=== PATIENT | female | born 1950 | race Caucasian/White ===

== ENCOUNTER → 2017-12-28 13:29 | Outpatient (CLI) | payer MEDICARE, SELFPAY ==
--- NOTE | 2017-12-28 13:35 | XR_ITS ---
XR knee RT 3V HISTORY: ITS.REASON: RT KNEE PAIN ORDERING PHYSICIAN: Anju Gunn PATIENT AGE: 67 years COMPARISON: FINDINGS: No fracture or dislocation. No lytic or blastic change. Normal mineralization. There are mild osteoarthritic changes of the medial compartment and patellofemoral joint. IMPRESSION: Mild osteoarthritis otherwise negative
== END ==
PROVIDERS: PCP Internal Medicine Adolescent Medicine; Visit Provider Nurse Practitioner Family
DX: M25.561 Pain in right knee (principal)
CPT/HCPCS: 73562

== ENCOUNTER → 2018-03-25 14:45 | Outpatient (CLI) | payer MEDICARE, SELFPAY ==
--- NOTE | 2018-03-25 14:51 | XR_ITS ---
XR wrist LT min 3V Ordering Physician: Anju Gunn Patient Age: 68 years: Female HISTORY: ITS.REASON: FALL TODAY, LT WRIST PAIN TECHNIQUE: 3 views right wrist COMPARISON :None FINDINGS Fracture distal radius. With this there is buckling of the cortex seen at the base of the radial styloid on the frontal projection of this mildly impacted fracture. Very subtle dorsal tilt of the distal fracture fragment evident on the lateral view. Soft tissue swelling about the wrist most evident dorsal. On the oblique view question due to the extension towards the ulnar margin articular surface but this is equivocal.. Demineralization noted. Carpals appear intact Advanced arthritic changes at the first carpal-metacarpal joint, with marked joint space narrowing sclerosis and hypertrophic features about this joint The ulna and relatively long ulnar styloid remain intact IMPRESSION 1. Fracture distal radius. Mildly impacted Fracture which basically transverses the. Scant Subtle dorsal tilt. Possible longitudinal extension to the medial articular surface of distal radius, on the oblique view. 2. Prominent degenerative arthritic changes at first carpal-metacarpal joint
== END ==
PROVIDERS: PCP Nurse Practitioner Family; Visit Provider Nurse Practitioner Family
DX: M25.532 Pain in left wrist (principal)
CPT/HCPCS: 73110

== ENCOUNTER → 2018-03-26 10:22 | Outpatient (CLI) | payer MEDICARE, SELFPAY ==
--- NOTE | 2018-03-26 10:23 | XR_ITS ---
XR wrist LT min 3V HISTORY: Recent fracture ITS.REASON: left wrist fx/ cast applied ORDERING PHYSICIAN: Kevin Barrios MD PATIENT AGE: 68 years COMPARISON: Left wrist 03/25/2018 FINDINGS: The fracture line of the distal radius is faintly seen due to the density of the cast. The distal ulna and ulnar styloid appear normal. The carpal bones are intact again noted is prominent arthritic change at the first carpal metacarpal joint IMPRESSION: Satisfactory recasting distal radial fracture
== END ==
PROVIDERS: PCP Internal Medicine Adolescent Medicine; Visit Provider Orthopaedic Surgery
DX: S62.102A Fracture of unspecified carpal bone, left wrist, initial encounter for closed fracture (principal)
CPT/HCPCS: 73110

== ENCOUNTER → 2018-04-01 12:13 | Outpatient (CLI) | payer MEDICARE, SELFPAY ==
--- NOTE | 2018-04-01 12:17 | XR_ITS ---
XR wrist LT min 3V Ordering Physician: Kevin Barrios MD Patient Age: 68 years: Female HISTORY: ITS.REASON: left wrist fx/ xrays in cast TECHNIQUE: 3 view left wrist in cast COMPARISON : 03/26/2018 FINDINGS Fiberglas cast remains in place. Healing fracture distal radius again identified and stable position of fracture elements. Scant dorsal tilt of the distal radial fracture fragment. Stable. The anatomical position on the frontal projection The arthritic changes first carpal metacarpal joint noted.. IMPRESSION: Stable healing fracture of the distal radius
== END ==
PROVIDERS: PCP Internal Medicine Adolescent Medicine; Visit Provider Orthopaedic Surgery
DX: S52.502A Unspecified fracture of the lower end of left radius, initial encounter for closed fracture (principal)
CPT/HCPCS: 73110

== ENCOUNTER → 2018-04-29 14:26 | Outpatient (CLI) | payer MEDICARE, SELFPAY ==
--- NOTE | 2018-04-29 14:29 | XR_ITS ---
XR wrist LT min 3V HISTORY follow-up fracture ITS.REASON: OUT OF CAST ORDERING PHYSICIAN: Kevin Barrios MD PATIENT AGE: 68 years Comparison: 04/01/2018 FINDINGS: The cast has been removed. Healing fracture of the distal radius once again noted with minimal dorsal angulation of the distal fracture fragment. Fracture line is barely perceptible. There are osteoarthritic changes of the first metacarpal carpal joint. IMPRESSION: Good alignment status post interval cast removal with healing fracture of the distal radius
== END ==
PROVIDERS: PCP Nurse Practitioner Family; Visit Provider Orthopaedic Surgery
DX: S52.502A Unspecified fracture of the lower end of left radius, initial encounter for closed fracture (principal)
CPT/HCPCS: 73110

== ENCOUNTER 2018-04-29 15:49 | Outpatient (RCR) | payer MEDICARE, SELFPAY | END 2018-04-30 10:18 | disposition home or self-care (01) | LOC: OT 15:49 | PROVIDERS: Family Provider Nurse Practitioner Family; PCP Nurse Practitioner Family; Visit Provider Orthopaedic Surgery | DX: S52.502A Unspecified fracture of the lower end of left radius, initial encounter for closed fracture (principal) | CPT/HCPCS: 97760 ==

== ENCOUNTER → 2018-05-24 13:57 | Outpatient (CLI) | payer MEDICARE, SELFPAY ==
--- NOTE | 2018-05-24 14:00 | XR_ITS ---
XR wrist LT min 3V HISTORY follow-up fracture ITS.REASON: left wrist pain ORDERING PHYSICIAN: Kevin Barrios MD PATIENT AGE: 68 years Comparison: 04/29/2018 FINDINGS: Healing distal radial fracture once again noted with mild dorsal angulation of the distal fracture fragment and no significant displacement. No obvious residual fracture line evident. There are degenerative changes at the first metacarpal carpal joint with some bony debris at that area. IMPRESSION: Nondisplaced healing distal radial fracture as before
== END ==
PROVIDERS: PCP Nurse Practitioner Family; Visit Provider Orthopaedic Surgery
DX: S52.502A Unspecified fracture of the lower end of left radius, initial encounter for closed fracture (principal)
CPT/HCPCS: 73110

== ENCOUNTER 2018-06-09 09:00 | Outpatient (RCR) | payer MEDICARE, SELFPAY ==
--- NOTE | 2018-05-04 17:11 | HMH.OTOPEV ---
OT Inpatient Evaluation Rehab OT Outpatient Eval Start: 05/04/18 17:01 Freq: Status: Active Protocol: Document 05/04/18 17:01 [email or web address] (Rec: 05/04/18 17:11 [id number] Electronically Signed By Falguni Nicole OT 05/04/18 17:01 Outpatient Therapy Subjective History Subjective History Pt is a 68 year old female who reports to therapy for initial evaluation to left thumb and wrist. Pt fell in her kitchen ~5 weeks ago resulting in a Left closed colles fx. Pt was recently taken out of her cast and fitted for a pre-hung wrist brace. Pt demonstrates wth decreased AROM and strength at left thumb and wrist. Pt also has decreased exhaust emissions automotive technician strength and decreased fine motor skills. Pt will continue to engage in therapy in order to address these deficits. 9 Hole peg test was completed Results: Left hand: 43 seconds Right hand: 22 seconds Goal: Left hand: 30 seconds Chief Complaint Pain Stiff Swelling Decreased Plumber Cub Strength Decreased Coordination Symptom Type Ache Throb Sharp Dull Stabbing Burning Numbness Tingling Shooting Symptoms Relieved By Nothing Symptoms Aggravated By Physical Activity Twisting Lifting Prior Functional Limitations None Current Functional Limitations Reaching Lifting Housework Dressing Desk Work/Reading Driving Sleeping Recreation Activity Symptom Description Constant but Variable
== END 2018-06-09 09:01 | disposition home or self-care (01) ==
LOC: OT 09:00
PROVIDERS: Family Provider Nurse Practitioner Family; PCP Nurse Practitioner Family; Visit Provider Orthopaedic Surgery
DX: S52.502A Unspecified fracture of the lower end of left radius, initial encounter for closed fracture (principal)
CPT/HCPCS: 97035; 97110; 97140; 97166

== ENCOUNTER → 2018-06-11 10:02 | Outpatient (CLI) | payer MEDICARE, SELFPAY ==
--- NOTE | 2018-06-11 10:04 | XR_ITS ---
XR wrist LT min 3V HISTORY follow-up fracture, pain ITS.REASON: left wrist pain ORDERING PHYSICIAN: Kevin Barrios MD PATIENT AGE: 68 years Comparison: 05/24/2018 FINDINGS: No change in the healing distal radial fracture once again noted with mild dorsal angulation of the distal fracture fragment and no significant displacement. No obvious residual fracture line evident. There are degenerative changes at the first metacarpal carpal joint with some bony debris at that area. IMPRESSION: Nondisplaced healing distal radial fracture overall not significantly changed with associated osteoarthritic change
== END ==
PROVIDERS: PCP Nurse Practitioner Family; Visit Provider Orthopaedic Surgery
DX: M18.12 Unilateral primary osteoarthritis of first carpometacarpal joint, left hand (principal); S52.502A Unspecified fracture of the lower end of left radius, initial encounter for closed fracture
CPT/HCPCS: 73110

== ENCOUNTER → 2018-12-29 16:14 | Outpatient (CLI) | payer MEDICARE, SELFPAY ==
--- NOTE | 2018-12-29 16:20 | XR_ITS ---
XR finger RT min 2V CLINICAL INDICATION: ITS.REASON: RT THUMB PAIN DUE TO TRAUMA ORDERING PHYSICIAN: Anju Gunn APRN PATIENT AGE: 68 years Comparison: None FINDINGS: There is a nondisplaced comminuted fracture involving the mid shaft of the proximal phalanx of the thumb with minimal dorsal angulation of the distal fracture fragment. There is an area of lucency involving the mid shaft of the proximal phalanx. This area measures approximately 6 mm. A lytic lesion is considered. Follow-up is suggested. There are mild degenerative changes of the first metacarpal carpal joint. IMPRESSION: Comminuted nondisplaced fracture midshaft proximal phalanx of the thumb with possible lytic lesion of the proximal phalanx. Follow-up radiograph suggested
== END ==
PROVIDERS: PCP Internal Medicine Adolescent Medicine; Visit Provider Nurse Practitioner Family
DX: M79.644 Pain in right finger(s) (principal); G89.11 Acute pain due to trauma
CPT/HCPCS: 73140

== ENCOUNTER → 2019-01-18 10:47 | Outpatient (CLI) | payer MEDICARE, SELFPAY ==
--- NOTE | 2019-01-18 10:59 | CT_ITS ---
CT abdomen pelvis wo con CLINICAL INDICATION: Left flank pain with hematuria ITS.REASON: ACUTE CYSTITIS W/HEMATURIA,URINARY FREQUENCY ORDERING PHYSICIAN: Anju Gunn APRN PATIENT AGE: 68 years COMPARISON: 12/12/2009 TECHNIQUE: Axial images obtained with sagittal and coronal reformats. All CT scans at the facility use one or more dose reduction, viz: automated exposure control, ma/kV adjustment per patient size (including targeted exams where dose is matched to indication, i.e. head), or iterative reconstruction technique. PROCEDURE: Oral Contrast: None IV Contrast: None . FINDINGS: Postcholecystectomy change. The liver, spleen, adrenal glands, and pancreas have an unremarkable unenhanced appearance. There is some dense calcification noted along the lesser curvature of the stomach. Small duodenal diverticulum is present. No renal or ureteral calculi. No hydronephrosis. No evidence of appendicitis. An oval hyperdensity is present in the ascending colon and may be due to a nondigested medicine. There are scattered colonic diverticula but no evidence of diverticulitis. Postsurgical changes in the small bowel in the left mid abdominal region. No intestinal obstruction or free air. No acute bony findings. Small left inguinal hernia containing fat IMPRESSION: No acute abdominal or pelvic findings. No renal or ureteral calculi. No hydronephrosis Incidental nonacute findings as described above.
== END ==
PROVIDERS: PCP Nurse Practitioner Family; Visit Provider Nurse Practitioner Family
DX: N30.01 Acute cystitis with hematuria (principal); R35.0 Frequency of micturition
CPT/HCPCS: 74176

== ENCOUNTER → 2019-04-18 15:10 | Outpatient (CLI) | payer MEDICARE, SELFPAY ==
--- NOTE | 2019-04-18 15:14 | MM_ITS ---
MM Dig mamm BI DX w/CAD INDICATION: Left breast pain ORDERING PHYSICIAN: Anju Gunn APRN PATIENT AGE: 69 years COMPARISON: 07/23/2017 TECHNIQUE: Standard images with nipple profile images and cc views FINDINGS: Mostly fatty replaced fibroglandular tissue. No discrete mass or malignant appearing microcalcification. Artifact is present from left-sided pacemaker placement. IMPRESSION: Negative, no evidence of malignancy with no significant change BI-RADS Category: 1 Negative RECOMMENDED FOLLOW-UP: 1YR - 1 YEAR FOLLOW-UP (A letter has been sent to the patient regarding results of the study.)
== END ==
PROVIDERS: PCP Nurse Practitioner Family; Visit Provider Nurse Practitioner Family
DX: N64.4 Mastodynia (principal)
CPT/HCPCS: 77066

== ENCOUNTER → 2019-06-07 08:27 | Outpatient (POV) | payer MEDICARE, SELFPAY | PROVIDERS: Visit Provider Dermatology | DX: Z00.00 Encounter for general adult medical examination without abnormal findings (principal) ==

== ENCOUNTER → 2019-06-21 08:38 | Outpatient (POV) | payer MEDICARE, SELFPAY | PROVIDERS: Visit Provider Dermatology | DX: Z00.00 Encounter for general adult medical examination without abnormal findings (principal) ==

== ENCOUNTER → 2019-06-28 08:25 | Outpatient (POV) | payer MEDICARE, SELFPAY | PROVIDERS: Visit Provider Dermatology | DX: Z00.00 Encounter for general adult medical examination without abnormal findings (principal) ==

== ENCOUNTER → 2020-06-04 14:26 | Outpatient (CLI) | payer MEDICARE, SELFPAY ==
--- NOTE | 2020-06-04 14:31 | MM_ITS ---
PROCEDURE: MM DIG SCREENING MAMM BI W/CAD Digital Breast Tomosynthesis Included CLINICAL INDICATION: SCREENING There is a history of breast cancer patient's paternal aunt. COMPARISON: MG DMSB DIG MAMM-SCREEN [facility] from 06/08/2015 MG DMSB DIG MAMM-SCREEN [facility] from 06/09/2016 MG DMSB DIG MAMM-SCREEN [facility] W/CAD from 07/23/2017 TECHNIQUE: Standard CC and MLO images and 3D Tomosynthesis was obtained. R2 CAD reviewed. FINDINGS: The breasts are composed primarily of fat with minimal scattered fibroglandular densities throughout each breast. There is a cardiac device projecting over the left axilla. There is no suspicious lesion in either breast and no suspicious microcalcifications. IMPRESSION: Fatty type breast parenchyma with no suspicious lesions seen BI-RAD Category: 2 Benign Finding(s) FOLLOW-UP: 1YR 1 Year Follow-up (A letter has been sent to the patient regarding results of the study.) Dictated by: Dr. Lucho Arriola MD 06/10/2020 09:47 Dr. Lucho Arriola MD in [place] 06/10/2020 09:47
--- NOTE | 2020-06-04 14:31 | XR_ITS ---
PROCEDURE: XR DEXA AXIAL SKELETON CLINICAL HISTORY: OSTEOPENIA COMPARISON: CR BONE3 BONE DENSITOMETRY(HIP:LT SPINE from 11/18/2016 FINDINGS: The right hip BMD is 0.616 with a T-score of -2.1. The left hip BMD is 0.615 with a T-score of -2.1. The lumbar spine BMD is 0.775 with a T-score of -2.5. Previously the lowest density was in the lumbar spine with a T-score of -2.2 IMPRESSION: This patient is considered osteoporotic according to the World Health Organization criteria. Fracture risk is high. Treatment is advised. Based on these results a follow-up exam is recommended in 1 year. Dictated by: Gerson Tidwell MD 06/05/2020 08:19 Gerson Tidwell MD in [facility] 06/05/2020 08:19
== END ==
PROVIDERS: PCP Nurse Practitioner Family; Visit Provider Nurse Practitioner Family
DX: Z12.31 Encounter for screening mammogram for malignant neoplasm of breast (principal); Z13.820 Encounter for screening for osteoporosis; M85.89 Other specified disorders of bone density and structure, multiple sites
CPT/HCPCS: 77063; 77067; 77080

== ENCOUNTER 2020-07-04 10:55 | Outpatient (CLI) | payer MEDICARE, SELFPAY ==
[2020-07-04 11:25] VITALS: BP 128/65; PULSE 90; RESP 20; TEMP 36.5; O2SAT 97
== END 2020-07-04 11:25 | disposition home or self-care (01) ==
LOC: INF 11:00
PROVIDERS: Visit Provider Nurse Practitioner Family
DX: M81.0 Age-related osteoporosis without current pathological fracture (principal)
CPT/HCPCS: 96372; J0897

== ENCOUNTER → 2020-08-17 14:02 | Outpatient (CLI) | payer MEDICARE, SELFPAY ==
--- NOTE | 2020-08-17 14:06 | CT_ITS ---
PROCEDURE: CT LUMBAR SPINE WO CON CLINICAL HISTORY: LOW BACK PAIN AT MULTIPLE SITES Mid back pain, low back pain radiating into the hip COMPARISON: CT ABDPELWO CT abdomen pelvis wo con from 01/18/2019 TECHNIQUE: Axial images obtained with sagittal and coronal reformats. All CT scans at the facility use one or more dose reduction, viz: automated exposure control, ma/kV adjustment per patient size (including targeted exams where dose is matched to indication, i.e. head), or iterative reconstruction technique. FINDINGS: The there is normal alignment. No acute fracture or dislocation is evident. L1-L2: There is mild degenerative disc disease with minimal retrolisthesis of L1 of 3 mm. L2-L3: Mild degenerative disc disease with minimal bulging disc. L3-L4: Minimal bulging disc slightly eccentric toward the left. L4-5: Mild concentric bulging disc with mild facet and ligamentum hypertrophy with minimal central disc protrusion. L5-S1: Mild facet hypertrophic change. No bony canal stenosis. IMPRESSION: Mild multilevel lumbar spondylosis. Please see above for detailed description at each level. Dictated by: Gerson Tidwell MD 08/18/2020 06:55 Gerson Tidwell MD in [place] 08/18/2020 06:55
== END ==
PROVIDERS: PCP Nurse Practitioner Family; Visit Provider Nurse Practitioner Family
DX: M54.5 Low back pain (principal)
CPT/HCPCS: 72131

== ENCOUNTER → 2020-09-06 10:48 | Outpatient (POV) | payer MEDICARE, SELFPAY ==
[2020-09-06 11:28] VITALS: BP 136/85; PULSE 74; RESP 18; TEMP 36.6; O2SAT 98; BMI 40.6
--- NOTE | 2020-09-06 13:51 | HMH.PMCON ---
Assessment and Plan (1) Degenerative joint disease (DJD) of lumbar spine Status: Chronic Category: Medical Code(s): M47.816 - Spondylosis without myelopathy or radiculopathy, lumbar region (2) Lumbar radiculopathy Status: Chronic Category: Medical Code(s): M54.16 - Radiculopathy, lumbar region - Assessment and plan all Dx Assessment and Plan for all problems:: Patient does have a Pacemaker and is unable to undergo an MRI. She does have a CT scan of her lumbar spine. She is exhibiting neurogenic claudication type symptoms. We will schedule her for a lumbar epidural steroid injection at L4-L5 with an epidurogram. She is on Xarelto therapy by Dr. Cintron. We will seek approval for her to hold her Xarelto therapy prior to the injection. Risks and benefits of the procedure were explained to the patient and she would like to proceed with the injection. We will see her back after injection to reassess her symptoms and discuss a further plan of care. She has been instructed to contact clinic if she has any concerns before next appointment. The patient and I specifically discussed risk factors for COVID19. These risks include, but are not limited to age greater than 60, heart or lung disease, diabetes, immunosuppression, and travel. We also discussed NSAIDs may worsen COVID19 infection or symptoms. Patient should not use NSAIDs to treat COVID19 signs or symptoms. Patient was also informed that any type of corticosteroid of any form (oral or injection) will decrease the patient's immune system response and may increase the likelihood of COVID19 infection and symptoms. And HPI - Data of Consult Patient: new to practice Consult date: 09/06/20 Requesting Physician: Akua Matias APRN Primary Care Provider: Anju Gunn APRN - Consult Narrative Reason for consult: Low back pain History of present illness: Ms. Cote is a 70 year old female who presents today for consultation for chronic low back pain. Patient says that she has had ongoing low back pain for greater than 30 years. 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 She attributes much of her back pain due to heavy lifting of patients throughout her career. She says that her pain is constant and is now causing her to lose her balance and fall. As a result, the patient has had a left wrist fracture and a right thumb fracture from frequent falls. She says that she is unable to stand long enough to do dishes or to cook a meal at this point due to the pain. Bending forward or laying in the position gives her some relief. She has tried physical therapy along with continued home stretching program with little to no relief. She says that she did have reported herniated disks at L4-L5 and L5-S1 in the past and traction did give her some relief. She did not undergo any type of surgical intervention at that time. She is not interested in any type of major surgical intervention or a neurosurgical consult at this time. She says that she does have episodes where her legs have become numb and she has lost her balance. Approximately a year ago she lost sensation in bilateral lower extremities and fell to the floor. She says that she developed sensation back to her legs in about 24 hours and was able to walk again. She says at this time, she is not able to stand, sit, or lie for very long due to pain. She also reports to have severe leg atrophy in her left lower extremity. 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 She is currently on gabapentin. She says that her pain is in the low back with radiation into bilateral legs with numbness and tingling. She does have history of osteoporosis as well. She is currently on Xarelto therapy that is prescribed by Dr. Cintron. She is unable to take anti-inflammatories due to her Xarelto therapy. She does continue wit
--- NOTE | 2020-09-14 15:37 | PC.NURSE ---
Spoke with patient to stop blood thinner 4 days before injection.
== END ==
PROVIDERS: PCP Nurse Practitioner Family; Visit Provider Clinical Nurse Specialist Family Health
DX: M47.896 Other spondylosis, lumbar region (principal); M54.16 Radiculopathy, lumbar region
CPT/HCPCS: 99202

== ENCOUNTER 2020-09-21 09:10 | Day surgery (SDC) | payer MEDICARE, SELFPAY ==
[2020-09-21 09:51] VITALS: BP 137/82; PULSE 95; RESP 20; TEMP 36.3; O2SAT 92; BMI 41.8
[2020-09-21 10:32] VITALS: BP 111/84; PULSE 93; RESP 18; O2SAT 98
[2020-09-21 10:33] VITALS: BP 115/89; PULSE 90; RESP 18; O2SAT 98
--- NOTE | 2020-09-21 10:38 | HMH.PMPROC ---
- Procedure Date: 09/21/20 Time: 10:38 Anesthesiologist:: Imtiaz Duran MD Complications:: None Pre-procedure Diagnosis:: Degenerative disc disease of lumbar spine with lumbar radiculopathy symptoms Post-procedure Diagnosis:: Same Indications for Procedure:: This patient is a pleasant 70-year-old white female who we are treating for low back pain with lumbar radiculopathy symptoms and spinal stenosis with neurogenic claudication symptoms. She has increasing pain on the right side. We will do a lumbar pleural steroid injection with epidurogram today to see if this will help with some of her pain symptoms. Procedure Details:: Lumbar epidural steroid injection under fluoroscopy Informed consent was obtained and the risk and benefits of the procedure was explained to the patient. The patient was taken to the procedure room. The patient was placed prone on the procedure table. The patient was prepped and draped in sterile fashion. C-arm fluoroscopy was used to view the lumbar spine. Skin and subcutaneous tissues were anesthetized using lidocaine. I placed an 18-gauge epidural needle and advanced into the L4-L5 interspace using fluoroscopic guidance and [id number] to air. After confirmation of needle placement in the epidural space with dye I injected 2 mL of lidocaine 1.5% with Depo-Medrol 80 mg. Patient tolerated the procedure well with no complications. Plan and Disposition:: Based on epidurogram she does have significant stenosis at L3-L4 and L4-L5. We will plan on minimally invasive lumbar decompression of L3-L4 and L4-L5 bilaterally. Worst pain is on the right side so we will concentrate on this side. She cannot stand for longer than 5 minutes. She cannot walk greater than 100 feet. We will plan on minimally invasive lumbar decompression at both of these levels.
[2020-09-21 10:46] VITALS: BP 140/68; PULSE 87; RESP 20; O2SAT 93
== END 2020-09-21 10:47 | disposition home or self-care (01) ==
LOC: SC.PAINP 09:11
PROVIDERS: PCP Nurse Practitioner Family; Visit Provider Anesthesiology
DX: M51.16 Intervertebral disc disorders with radiculopathy, lumbar region (principal); I10 Essential (primary) hypertension; E78.5 Hyperlipidemia, unspecified; E03.9 Hypothyroidism, unspecified; Z88.8 Allergy status to other drugs, medicaments and biological substances; Z88.1 Allergy status to other antibiotic agents; Z79.899 Other long term (current) drug therapy
CPT/HCPCS: 62323; J1040; Q9966

== ENCOUNTER → 2020-10-11 10:12 | Outpatient (POV) | payer MEDICARE, SELFPAY ==
[2020-10-11 10:27] VITALS: BP 133/78; PULSE 74; RESP 18; TEMP 36.8; O2SAT 98; BMI 43.5
--- NOTE | 2020-10-11 10:53 | P.CONS_ITS ---
[facility] Pain Management SOAP Note Subjective:: Is a very pleasant 70-year-old white female who we are treating for low back pain with lumbar radiculopathy and spinal stenosis with neurogenic claudication. Patient had a epidurogram which showed significant stenosis at L3-L4 L4-L5. Patient is a candidate for minimally invasive lumbar decompression at L3-L4 L4- L5 bilaterally. Patient's worst pain is on the right side so the concentration will be on that side. Patient cannot stand longer than 5 minutes. She cannot walk greater than 100 feet. Patient's tried and failed other conservative measures. She rates her pain today 7 out of 10. Patient is on anticoagulation therapy however she does have permission to come off prior to her procedure. ROS General: no recent weight change, no fever, no sleep disturbances Respiratory: no cough, no shortness of air, no recurring pulmonary infections Cardiovascular/Peripheral Vascular: No chest pain, No palpitations, no edema, no shortness of breath. Gastrointestinal: no new onset incontinence, normal bowel movements reported Genitourinary: no new onset incontinence Musculoskeletal: Back pain, leg pain Psychiatric: normal mood/ affect, Neurological: Weakness bilateral lower extremities when standing, [denies new onset balance issues] Objective:: Physical Exam General: Alert and oriented x3, no acute distress, pleasant and cooperative, on home O2 Lungs: Resps E/U, Symmetrical chest expansion, Eyes: PERRL Musculoskeletal: Flexion and extension of lumbar spine somewhat guarded secondary to pain, deep tendon reflexes normal, strength in upper and lower extremities [5/5], [abnormal gait noted] Neurological: speech clear, concession stand attendant equal, no gross sensory deficits Assessment:: Degenerative disc disease lumbar spine lumbar radiculopathy, spinal stenosis with neurogenic claudication Plan:: We will schedule the patient for minimally invasive lumbar decompression at L3- L4 L4 L5 with a focus on the right side. Patient has permission to come off of her anticoagulation therapy. Patient will follow up after this and we will reassess her symptoms at that time she has been instructed to call the office if she has any issues prior to her next appointment. Dr. Duran has reviewed this note and agrees with this plan of care. This note was dictated using voice recognition software and may contain errors or omissions [facility] History I have reviewed the patient's past medical history: Yes Medical History: Reports:: Arrhythmia, Atrial Fibrillation, Congestive Heart Failure, Chronic Obstructive Pulmonary Disease (COPD), Diabetes Mellitus Type 2, Gastroesophageal Reflux Disease(GERD), Home Oxygen, Hyperlipidemia, Hypertension, Internal Pacemaker, Valvular Heart Disease Denies:: Cancer, Diabetes Mellitus Type 1, MRSA, Seizures *Have you ever received a pneumonia vaccine?: Yes *Have you received a flu vaccine this season?: Yes Other Medical History: Reports: Anemia, Arthritis, Cataracts, Hypothyroidism, Thyroid Disease Laterality Cases: Right: Arthroscopy Shoulder Other Surgeries: Yes: Bariatric Surgery (gastric bypass), Cholecystectomy, Hernia Repair (multiple), Pacemaker Amputation: No - *Social History Smoking Status: Never smoker Alcohol Intake: never Alcohol Intake Frequency:: holidays/special occasions only *Occupational Status:: other Housing: house Household Members: spouse *Travel in the last 8 weeks: None Family Hx:: Unable to obtain
== END ==
PROVIDERS: PCP Nurse Practitioner Family; Visit Provider Clinical Nurse Specialist Family Health
DX: M51.16 Intervertebral disc disorders with radiculopathy, lumbar region (principal); M48.062 Spinal stenosis, lumbar region with neurogenic claudication
CPT/HCPCS: 99212; G0463

== ENCOUNTER → 2020-10-15 14:30 | Outpatient (CLI) | payer MEDICARE, SELFPAY ==
[2020-10-15 15:13] LABS: Basophils # 0.1 K/mm3 (0-0.2); Basophils % 0.5 % (0.1-2.0); Eosinophils # 0.2 K/mm3 (0.0-0.4); Eosinophils % 1.9 % (0.1-12.0); Hematocrit 41.5 % (37.0-47.0); Hemoglobin 13.1 g/dL (12.2-16.2); Lymphocytes # 3.3 K/mm3 (0.7-4.5); Lymphocytes % 30.7 % (10-50); Mean Corpuscular HGB Conc 31.4 g/dL (31.8-35.4); Mean Corpuscular Hemoglobin 29.7 pg (27.0-31.2); Mean Corpuscular Volume 94.5 fl (81-99); Monocytes # 0.6 K/mm3 (0.1-1.0); Monocytes % 5.9 % (1.7-9.3); Neutrophils # 6.6 K/mm3 (1.8-7.8); Platelet Count 269 K/mm3 (142-424); Red Cell Distribution Width 14.1 % (11.5-17.5); White Blood Count 10.9 K/mm3 (4.8-10.8)
[2020-10-15 17:51] LABS: Anion Gap 11.3 mEq/L (5-15); Blood Urea Nitrogen 18 mg/dl (7-17); Calcium 9.2 mg/dl (8.4-10.2); Carbon Dioxide 31 mmol/L (22.0-30.0); Chloride 104 mmol/L (98-107); Estimated Glomerular Filt Rate 71 ml/min (>60); GFR (African American) 86 ML/MIN (>60); Glucose 88 mg/dl (74-100); Potassium 4.3 mmoL/L (3.5-5.1); Sodium 142 mmol/L (136-145)
[2020-10-15 18:14] LABS: Coronavirus 19 IgG Antibody Positive (Negative); Coronavirus 19 IgM Antibody Negative (Negative)
== END ==
PROVIDERS: Anesthesiology; Visit Provider Psychiatry & Neurology Neurology
DX: Z01.812 Encounter for preprocedural laboratory examination (principal); Z20.822 Contact with and (suspected) exposure to COVID-19; Z86.16 Personal history of COVID-19; G60.9 Hereditary and idiopathic neuropathy, unspecified; M47.816 Spondylosis without myelopathy or radiculopathy, lumbar region; M54.16 Radiculopathy, lumbar region
CPT/HCPCS: 36415; 80048; 82525; 85025; 86328

== ENCOUNTER 2020-10-17 08:54 | Day surgery (SDC) | payer MEDICARE, SELFPAY ==
[2020-10-15 12:42] VITALS: BMI 43.0
[2020-10-17 09:31] VITALS: BP 133/78; PULSE 76; RESP 18; TEMP 36.2; O2SAT 98
[2020-10-17 09:46] LABS: POC Glucose,Bedside 105 (70-110)
--- NOTE | 2020-10-17 10:02 | HMH.ANESCL ---
[facility] Anesthesia Checklist - Structural Data Admitted From: Home Planned Operative Procedure/s: mild Consent for Planned Operative Procedure(s) Verified: Yes - Additional verifications Anesthesia Reactions: No Hx Blood Transfusions: No Blood Transfusion Reaction: No - Airway Assessment C-Spine Mobility Assessed: Yes TMJ Mobility Assessed: Yes Dentition: Good Dentition - Neurological Assessment Level of Consciousness: Awake, Alert, Appropriate - Anesthesia Plan Anesthesia Risk discussed: Yes Anesthesia Plan: Patient unable to respond/answer ASA Class: III Anesthesia Type: MAC [facility] History I have reviewed the patient's past medical history: Yes Medical History: Reports:: Arrhythmia, Atrial Fibrillation, Congestive Heart Failure, Chronic Obstructive Pulmonary Disease (COPD), Diabetes Mellitus Type 2, Gastroesophageal Reflux Disease(GERD), Home Oxygen, Hyperlipidemia, Hypertension, Internal Pacemaker, MRSA, Valvular Heart Disease Denies:: Cancer, Diabetes Mellitus Type 1, Seizures *Have you ever received a pneumonia vaccine?: Yes *Have you received a flu vaccine this season?: Yes Other Medical History: Reports: Anemia, Arthritis, Cataracts, Hypothyroidism, Thyroid Disease. Denies: Blood Transfusion Reaction Anesthesia experience/problems:: none Laterality Cases: Right: Arthroscopy Shoulder Other Surgeries: Yes: Bariatric Surgery (gastric bypass), Cholecystectomy, Hernia Repair (multiple), Pacemaker Amputation: No - *Social History Last grade of school completed: Advanced degree Smoking Status: Former smoker Alcohol Intake: never Alcohol Intake Frequency:: holidays/special occasions only Substance Use Type: denies use *Occupational Status:: retired Housing: house Household Members: spouse *Travel in the last 8 weeks: None Family Hx:: Unable to obtain
[2020-10-17 12:25] VITALS: BP 99/54; PULSE 80; RESP 18; TEMP 36.7; O2SAT 96
--- NOTE | 2020-10-17 12:25 | PC.NURSE ---
LUNG SOUND OCCASIONAL EXPIRATORY WHEEZE RIGHT UPPER LOBE. PT REPORTS HAVING COPD AND HAS OCCASIONAL WHEEZE.
--- NOTE | 2020-10-17 12:25 | PC.NURSE ---
LUNG SOUND - PT HAS OCCASIONAL EXPIRATORY WHEEZE IN RIGHT UPPER LOBE. PT REPORTS SHE HAS COPD AND HAS OCCASIONAL WHEEZE.
--- NOTE | 2020-10-17 12:28 | HMH.OPNOTE ---
Date of procedure: 10/17/20 Pre-op Diagnosis:: Degenerative disc disease of lumbar spine with lumbar radiculopathy symptoms with lumbar spinal stenosis and neurogenic claudication symptoms Post-op Diagnosis:: Same Procedure performed:: Minimally invasive lumbar decompression bilateral L3-L4 and L4-L5 under fluoroscopy Surgeon:: Imtiaz Duran MD SEO ANALYST:: Beto Chinchilla Anesthesia: MAC Estimated blood loss (mL): 5 Clinical Note:: This patient is a pleasant 70-year-old white female who we are treating for low back pain with lumbar radiculopathy symptoms and spinal stenosis with neurogenic claudication symptoms. She has failed all previous conservative treatments including injections, oral medications, physical therapy and she is not a surgical candidate. She does have significant spinal stenosis based on previous epidurogram and MRI. She has significant stenosis at bilateral L3-L4 and L4-L5. Her main symptoms are on the right side. We will do bilateral minimally invasive lumbar decompression of L3-4 and L4-5 today. Operative findings:: None Operative note:: Informed consent was obtained and the risk and benefits of the procedure was explained to the patient. The patient was taken to the operating room and placed prone on the procedure table. The patient was prepped and draped in sterile fashion. C-arm fluoroscopy was used to view the lumbar spine. The skin and subcutaneous tissues were anesthetized using lidocaine. A epidural needle was inserted and advanced into the L3-L4 interspace. After confirmation of needle placement in the epidural space, dye was injected in a contralateral oblique view. There was an epidurogram seen at L3-L4 and L4-L5. Significant stenosis was seen at L3-L4 and L4-L5. The skin and subcutaneous tissues again were anesthetized using lidocaine. An incision was made and a access trocar was inserted and advanced to contact at the superior aspect of the L4 lamina on the left side. And a contralateral oblique view the side was viewed. Using a bone rongeur and tissue sculptor we debulked bone from the L3-L4 and L4-L5 interspace on the left side. We then used the tissue sculptor to debulk ligament at the L3-L4 and L4-L5 interspace on the left side. We then moved over to the right side and debulked bone and ligament from L3-L4 and L4-L5 on the right side. There is opening of the stenosis at L3-L4 and L4-L5 bilaterally. The access trocar was removed. A total of 3 mL's of dye was used. There is good spread of dye above and below this level as well. We injected 80 mg Depo-Medrol through the epidural needle. The epidural needle was removed and dressings were placed. This encounter for exam is for normal comparison and control in a clinical research program Patient was taken to recovery in stable condition. Patient was discharged home neurologically intact and with good relief of pain symptoms. Plan and disposition: We will follow-up with this patient in 2 weeks. Will reevaluate symptoms at that time. Condition: stable Disposition: PACU Complications:: None
[2020-10-17 12:40] VITALS: BP 106/61; PULSE 69; RESP 18; O2SAT 99
[2020-10-17 12:55] VITALS: BP 97/59; PULSE 67; RESP 18; O2SAT 99
[2020-10-17 13:25] VITALS: BP 103/54; PULSE 69; RESP 18; O2SAT 99
--- NOTE | 2020-10-17 13:50 | SUR.PHASEII ---
DR MASCORRO AT BEDSIDE. NOTIFIED PT HAD OCCASIONAL WHEEZE IN RIGHT UPPER LOBE. PT REPORTS HAVING COPD. NO NEW ORDERS GIVEN. PT MAY BE DISCHARGED HOME.
[2020-10-17 13:55] VITALS: BP 111/68; PULSE 72; RESP 18; TEMP 36.7; O2SAT 97
== END 2020-10-17 13:55 | disposition home or self-care (01) ==
LOC: OR 08:56
PROVIDERS: PCP Nurse Practitioner Family; Visit Provider Anesthesiology
DX: M51.16 Intervertebral disc disorders with radiculopathy, lumbar region (principal); M48.062 Spinal stenosis, lumbar region with neurogenic claudication; Z00.6 Encounter for examination for normal comparison and control in clinical research program; E11.9 Type 2 diabetes mellitus without complications; J44.9 Chronic obstructive pulmonary disease, unspecified; I11.0 Hypertensive heart disease with heart failure; E78.5 Hyperlipidemia, unspecified; I48.91 Unspecified atrial fibrillation; I50.9 Heart failure, unspecified; K21.9 Gastro-esophageal reflux disease without esophagitis; Z86.14 Personal history of Methicillin resistant Staphylococcus aureus infection; Z99.81 Dependence on supplemental oxygen
CPT/HCPCS: 0275T; 82962; 96374; C1889; J1040; J3370

== ENCOUNTER → 2020-11-01 13:43 | Outpatient (POV) | payer MEDICARE, SELFPAY ==
[2020-11-01 14:07] VITALS: BP 122/78; PULSE 71; RESP 18; O2SAT 98; BMI 41.0
--- NOTE | 2020-11-01 17:07 | HMH.PAINSOAP ---
[facility] Pain Management SOAP Note Subjective:: Patient is a pleasant 70-year-old white female who presents today for follow-up after mild procedure L3-L4 L4-L5. She has been treated for chronic pain secondary to degenerative disc disease lumbar spine with lumbar radiculopathy symptoms as well as lumbar spinal stenosis with neurogenic claudication symptoms. Patient does rate her pain a 3 out of 10 today. She says she is doing well overall. She denies any issues today. She says that she feels she is much more functional and able to walk better since having the procedure. Patient says she does continue to have some low back pain, however, she says that she is realistic and understands that she will not get 100% pain relief with the procedure. Review of Systems General: No recent weight changes, no fever, no sleep disturbances Respiratory: No cough, no shortness of air, no recurring pulmonary infections Cardiovascular/peripheral vascular: No chest pain, no palpitations, no edema, no shortness of breath Gastrointestinal: No new onset incontinence, normal bowel movements reported Genitourinary: No new onset incontinence Musculoskeletal: Intermittent low back pain Psychiatric: Normal mood/affect Neurological: [Denies weakness in extremities], [denies balance issues] Objective:: Physical exam General: Alert and oriented x3, no acute distress, pleasant and cooperative, [on room air] Lungs: Respirations even and unlabored, symmetrical chest expansion Eyes: PERRL Musculoskeletal: Flexion and extension of lumbar spine somewhat guarded secondary to pain, deep tendon reflexes normal, strength in upper and lower extremities [5/5], [abnormal gait noted] Neurological: Speech clear, 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 We will plan to follow-up with her in 2 weeks to reevaluate her symptoms. She has been instructed to contact clinic if she has any concerns for next appointment. The patient and I specifically discussed risk factors for COVID19. These risks include, but are not limited to age greater than 60, heart or lung disease, diabetes, immunosuppression, and travel. We also discussed NSAIDs may worsen COVID19 infection or symptoms. Patient should not use NSAIDs to treat COVID19 signs or symptoms. Patient was also informed that any type of corticosteroid of any form (oral or injection) will decrease the patient's immune system response and may increase the likelihood of COVID19 infection and symptoms[address] Dr. Duran has reviewed this note and agrees with this plan of care. This note was dictated using voice recognition software and make contain errors or omissions. [facility] History I have reviewed the patient's past medical history: Yes Medical History: Reports:: Arrhythmia, Atrial Fibrillation, Congestive Heart Failure, Chronic Obstructive Pulmonary Disease (COPD), Diabetes Mellitus Type 2, Gastroesophageal Reflux Disease(GERD), Home Oxygen, Hyperlipidemia, Hypertension, Internal Pacemaker, MRSA, Valvular Heart Disease Denies:: Cancer, Diabetes Mellitus Type 1, Seizures *Have you ever received a pneumonia vaccine?: Yes *Have you received a flu vaccine this season?: Yes Other Medical History: Reports: Anemia, Arthritis, Cataracts, Hypothyroidism, Thyroid Disease. Denies: Blood Transfusion Reaction Laterality Cases: Right: Arthroscopy Shoulder Other Surgeries: Yes: Bariatric Surgery (gastric bypass), Cholecystectomy, Hernia Repair (multiple), Pacemaker Amputation: No - *Social History Smoking Status: Former smoker Alcohol Intake: never Alcohol Intake Frequency:: holidays/special occasions only Substance Use Type: denies use *Occupational Status:: other Housing: house Household Members: spouse *Travel in the last 8 weeks: None Family
== END ==
PROVIDERS: PCP Nurse Practitioner Family; Visit Provider Clinical Nurse Specialist Family Health
DX: M51.16 Intervertebral disc disorders with radiculopathy, lumbar region (principal); M48.062 Spinal stenosis, lumbar region with neurogenic claudication
CPT/HCPCS: 99212; G0463

== ENCOUNTER → 2020-11-15 14:25 | Outpatient (POV) | payer MEDICARE, SELFPAY ==
[2020-11-15 14:48] VITALS: BP 135/74; PULSE 74; RESP 18; O2SAT 98; BMI 32.4
--- NOTE | 2020-11-15 15:48 | HMH.PAINSOAP ---
[facility] Pain Management SOAP Note Subjective:: Patient is a pleasant 70-year-old white female who presents today for follow-up after minimally invasive lumbar decompression. Patient states that she is been doing well she rates her pain a 6 out of 10 however she states that she was very active yesterday and the weather is also playing a factor in regard to her pain overall she is very satisfied with her current postoperative status. 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 Patient has very realistic expectations. I discussed with her if she ever needs this in the future for injective therapy she is more than welcome to return. Patient is agreeable to this. ROS General: no recent weight change, no fever, no sleep disturbances Respiratory: no cough, no shortness of air, no recurring pulmonary infections Cardiovascular/Peripheral Vascular: No chest pain, No palpitations, no edema, no shortness of breath. Gastrointestinal: no new onset incontinence, normal bowel movements reported Genitourinary: no new onset incontinence Musculoskeletal: Back pain leg pain Psychiatric: normal mood/ affect Neurological: [denies new onset weakness in extremities], [denies new onset balance issues] Objective:: Physical Exam General: Alert and oriented x3, no acute distress, pleasant and cooperative, home O2 Lungs: Resps E/U, Symmetrical chest expansion, Eyes: PERRL Musculoskeletal: Flexion and extension of lumbar spine somewhat guarded secondary to pain, deep tendon reflexes normal, strength in upper and lower extremities [5/5], [abnormal gait noted] Neurological: speech clear, pet supplies salesperson equal, no gross sensory deficits Assessment:: Degenerative disc disease lumbar spine lumbar radiculopathy, back pain, spinal stenosis with neurogenic claudication Plan:: We will see the patient back on an as-needed basis she has been instructed to call the office if she has any issues prior to her next appointment. Dr. Duran has reviewed this note and agrees with this plan of care. This note was dictated using voice recognition software and may contain errors or omissions [facility] History I have reviewed the patient's past medical history: Yes Medical History: Reports:: Arrhythmia, Atrial Fibrillation, Congestive Heart Failure, Chronic Obstructive Pulmonary Disease (COPD), Diabetes Mellitus Type 2, Gastroesophageal Reflux Disease(GERD), Home Oxygen, Hyperlipidemia, Hypertension, Internal Pacemaker, MRSA, Valvular Heart Disease Denies:: Cancer, Diabetes Mellitus Type 1, Seizures *Have you ever received a pneumonia vaccine?: No *Have you received a flu vaccine this season?: No Other Medical History: Reports: Anemia, Arthritis, Cataracts, Hypothyroidism, Thyroid Disease. Denies: Blood Transfusion Reaction Laterality Cases: Right: Arthroscopy Shoulder Other Surgeries: Yes: Bariatric Surgery (gastric bypass), Cholecystectomy, Hernia Repair (multiple), Pacemaker Amputation: No - *Social History Smoking Status: Former smoker Alcohol Intake: never Alcohol Intake Frequency:: holidays/special occasions only Substance Use Type: denies use *Occupational Status:: other Housing: house Household Members: spouse *Travel in the last 8 weeks: None Family Hx:: Unable to obtain
== END ==
PROVIDERS: Visit Provider Clinical Nurse Specialist Family Health
DX: M51.16 Intervertebral disc disorders with radiculopathy, lumbar region (principal); M48.062 Spinal stenosis, lumbar region with neurogenic claudication
CPT/HCPCS: 99212; G0463

== ENCOUNTER 2021-01-02 11:00 | Outpatient (CLI) | payer MEDICARE, SELFPAY ==
[2021-01-02 11:40] VITALS: BP 137/78; PULSE 78; RESP 20; TEMP 35.8; O2SAT 99
== END 2021-01-02 11:55 | disposition home or self-care (01) ==
LOC: INF 11:08
PROVIDERS: Visit Provider Nurse Practitioner Family
DX: M81.0 Age-related osteoporosis without current pathological fracture (principal)
CPT/HCPCS: 96372; J0897

== ENCOUNTER → 2021-05-24 17:55 | Outpatient (CLI) | payer MEDICARE, SELFPAY | PROVIDERS: Visit Provider Nurse Practitioner Family | DX: R35.0 Frequency of micturition (principal) | CPT/HCPCS: 87086 ==

== ENCOUNTER → 2021-06-05 08:32 | Outpatient (CLI) | payer MEDICARE, SELFPAY ==
--- NOTE | 2021-06-05 | XR_ITS ---
PROCEDURE: XR DEXA AXIAL SKELETON CLINICAL HISTORY: POST MENOPAUSAL COMPARISON: CR BONE3 BONE DENSITOMETRY(HIP:LT SPINE from 11/18/2016 FINDINGS: The right hip BMD is 0.653 with a T-score of -1.8. The left hip BMD is 0.653 with a T-score of -1.8. The lumbar spine BMD is 0.82 with a T-score of -2.0. Previously the lowest density was in the lumbar spine with T-score of -2.2 IMPRESSION: This patient is considered osteopenic according to the World Health Organization criteria. Bone density is between 10 and 25 percent below young normal. Fracture risk is moderate. Treatment is advised. Based on these results a follow-up exam is recommended in 2 year. Dictated by: Gerson Tidwell MD 06/05/2021 13:30 Gerson Tidwell MD in [place] 06/05/2021 13:30
--- NOTE | 2021-06-05 08:35 | MM_ITS ---
PROCEDURE INFORMATION: Exam: MG Bilateral Screening 3D Mammography Exam date and time: 06/05/2021 8:35 AM Age: 71 years old Clinical indication: Encounter for screening mammogram for malignant neoplasm of breast TECHNIQUE: Imaging protocol: Bilateral screening tomosynthesis and 2D mammography including computer-aided detection (CAD) when performed. COMPARISON: 1. MG MM DIG SCREENING MAMM BI W/CAD 06/04/2020 2:46 PM 2. SD MM DIG MAMM BI DX W/CAD 04/18/2019 3:30 PM FINDINGS: MAMMOGRAPHY: Breast composition: The breasts are almost entirely fatty. Mass: None. Architectural distortion: None. Calcifications: No suspicious calcifications. Asymmetric density: None. Skin thickening: None. Axillary adenopathy: None. IMPRESSION: No mammographic evidence of malignancy. Annual screening is recommended unless otherwise clinically indicated. ASSESSMENT: BI-RADS Category 1: Negative
== END ==
PROVIDERS: PCP Nurse Practitioner Family; Visit Provider Nurse Practitioner Family
DX: Z12.31 Encounter for screening mammogram for malignant neoplasm of breast (principal); Z13.820 Encounter for screening for osteoporosis; Z78.0 Asymptomatic menopausal state
CPT/HCPCS: 77063; 77067; 77080

== ENCOUNTER 2021-08-06 10:31 | Outpatient (CLI) | payer MEDICARE, SELFPAY ==
[2021-08-06 10:50] VITALS: BP 142/96; PULSE 71; RESP 17; TEMP 36.6; O2SAT 96
== END 2021-08-06 10:51 | disposition home or self-care (01) ==
LOC: INF 10:32
PROVIDERS: PCP Nurse Practitioner Family; Visit Provider Nurse Practitioner Family
DX: M85.89 Other specified disorders of bone density and structure, multiple sites (principal)
CPT/HCPCS: 96372; J0897

== ENCOUNTER 2022-01-17 16:59 | Inpatient (IN) | payer MEDICARE, SELFPAY ==
[2022-01-17 17:16] VITALS: BMI 37.4
--- NOTE | 2022-01-17 17:25 | XR_ITS ---
PROCEDURE INFORMATION: Exam: XR Chest Exam date and time: 01/17/22 06:12 PM Age: 71 years old Clinical indication: Shortness of breath; Prior surgery; Additional info: Respiratory distress TECHNIQUE: Imaging protocol: XR of the chest. Views: 2 views. COMPARISON: CR RIBUR3 [id number] VIEWS 09/10/15 04:19 PM FINDINGS: Lungs: Unremarkable. No consolidation. Pleural spaces: Unremarkable. No pleural effusion. No pneumothorax. Heart/Mediastinum: Pacemaker in good position. No cardiomegaly. Bones/joints: Unremarkable. IMPRESSION: No acute findings.
[2022-01-17 17:41] VITALS: BP 147/80; RESP 20; TEMP 37.5; O2SAT 92
[2022-01-17 18:40] VITALS: PULSE 72; PULSE 73; O2SAT 95
--- NOTE | 2022-01-17 18:44 | HMH.HP ---
*Admission Date: 01/17/22 *Chief complaint: weakness, SOA *History of present illness: 71-year-old female with history of chronic hypoxemic respiratory who presented to our office today with worsening cough, shortness of breath, increased oxygen requirement. States she been feeling worse since Thursday. Started having productive cough. Having nighttime sweats, increased body aches. Started on antibiotics in the outpatient setting with no improvement yet, but is developed diarrhea from the antibiotics. In our office with her , who is more dyspneic on interview requiring increased oxygen requirement to maintain sats in the low 90s. Decision made to admit from the office. On initial labs and imaging, has mild elevation of white count, presumed respiratory infection, and fever. CXR with hyperexpansion but no appreciable focal consolidation. Marked perihilar congestion. Negative for Flu and Covid on initial swabs. [facility] History I have reviewed the patient's past medical history: Yes Medical History: Reports:: Arrhythmia, Atrial Fibrillation, Congestive Heart Failure, Chronic Obstructive Pulmonary Disease (COPD), Diabetes Mellitus Type 2, Gastroesophageal Reflux Disease(GERD), Home Oxygen, Hyperlipidemia, Hypertension, Internal Pacemaker, MRSA, Valvular Heart Disease Denies:: Cancer, Diabetes Mellitus Type 1, Seizures *Have you ever received a pneumonia vaccine?: No *Have you received a flu vaccine this season?: No Other Medical History: Reports: Anemia, Arthritis, Cataracts, Hypothyroidism, Thyroid Disease. Denies: Blood Transfusion Reaction Laterality Cases: Right: Arthroscopy Shoulder Other Surgeries: Yes: Bariatric Surgery (gastric bypass), Cholecystectomy, Hernia Repair (multiple), Pacemaker Amputation: No - *Social History Smoking Status: Former smoker Alcohol Intake: never Alcohol Intake Frequency:: holidays/special occasions only Substance Use Type: denies use *Occupational Status:: other Housing: house Household Members: spouse *Travel in the last 8 weeks: None Family Hx:: Unable to obtain Review of Systems - Review of Systems Review of systems:: pertinent systems reviewed and negative unless documented below (14 point review of systems performed, pertinent positives and negatives as per HPI) Meds Home Medications Medication Instructions Recorded Confirmed Type biotin 5,000 mcg disintegrating 10,000 mcg PO BID 03/26/18 01/17/22 History tablet citalopram 20 mg tablet 40 mg PO DAILY 03/26/18 01/17/22 History coenzyme Q10 100 mg capsule 300 mg PO DAILY 03/26/18 01/17/22 History dofetilide 500 mcg capsule 500 mcg PO BID 03/26/18 01/17/22 History furosemide 40 mg tablet 40 mg PO BID 03/26/18 01/17/22 History gabapentin 300 mg capsule 600 mg PO BID 03/26/18 01/17/22 History hydrocodone 7.5 mg-acetaminophen 1 tab PO TID PRN 03/26/18 01/17/22 History 325 mg tablet irbesartan 75 mg tablet 75 mg PO DAILY 03/26/18 01/02/21 History levothyroxine 50 mcg tablet 50 mcg PO ONCE 03/26/18 01/17/22 History lorazepam 1 mg tablet 1 mg PO BID PRN 03/26/18 01/17/22 History melatonin 3 mg tablet 3 mg PO HS PRN 03/26/18 01/17/22 History metaxalone 800 mg tablet 800 mg PO TID 03/26/18 01/17/22 History mometasone-formoterol HFA 200 2 puff INHALATION BID 03/26/18 01/17/22 History mcg-5 mcg/actuation aerosol inhaler montelukast 10 mg tablet 10 mg PO QPM 03/26/18 01/17/22 History nebivolol 5 mg tablet 5 mg PO DAILY 03/26/18 01/17/22 History omeprazole 40 mg-sodium 1 cap PO BID 03/26/18 01/17/22 History bicarbonate 1.1 gram capsule rivaroxaban 20 mg tablet 20 mg PO QPM 03/26/18 01/17/22 History simvastatin 40 mg tablet 40 mg PO QPM 03/26/18 01/17/22 History sucralfate 1 gram tablet 1 g PO Q6H 03/26/18 01/17/22 History thiamine HCl (vitamin B1) 250 mg 1,000 mg PO DAILY 03/26/18 01/17/22 History tablet Albuterol Sulfate [Albuterol 8.5 gm IH Q4-6H PRN 07/04/20 01/17/22 History Sulfate Hfa] Alpha Lipoic Acid 200 mg PO DAILY 10
[2022-01-17 19:53] LABS: Coronavirus 19, PCR Not Detected (NotDetected); Influenza A, PCR Not Detected (NotDetected); Influenza B, PCR Not Detected (NotDetected)
[2022-01-17 19:55] LABS: Basophils # 0.1 K/mm3 (0-0.2); Basophils % 1.2 % (0.1-2.0); Eosinophils % 0.1 % (0.1-12.0); Hematocrit 37.8 % (37.0-47.0); Hemoglobin 12.1 g/dL (12.2-16.2); Lymphocytes # 3.1 K/mm3 (0.7-4.5); Lymphocytes % 27.2 % (10-50); Mean Corpuscular Hemoglobin 29.8 pg (27.0-31.2); Mean Corpuscular Volume 92.9 fl (81-99); Mean Platelet Volume 11.3 fl (7.4-10.4); Monocytes # 0.7 K/mm3 (0.1-1.0); Neutrophils # 7.5 K/mm3 (1.8-7.8); Neutrophils % 65.4 % (37.0-80.0); Platelet Count 198 K/mm3 (142-424); Red Blood Count 4.06 M/mm3 (4.20-5.40); White Blood Count 11.4 K/mm3 (4.8-10.8)
[2022-01-17 20:00] VITALS: BP 148/72; PULSE 80; RESP 20; TEMP 38.4; O2SAT 96
[2022-01-17 20:03] LABS: Alanine Aminotransferase 27 U/L (12-78); Albumin Level 3.9 g/dl (3.5-5.0); Albumin/Globulin Ratio 1.2 (1.1-1.8); Alkaline Phosphatase 69 U/L (38-126); Anion Gap 10.4 mEq/L (5-15); Aspartate Amino Transferase 30 U/L (14-36); Blood Urea Nitrogen 13 mg/dl (7-17); Calcium 8.9 mg/dl (8.4-10.2); Carbon Dioxide 31 mmol/L (22.0-30.0); Chloride 102 mmol/L (98-107); Creatinine Clearance Estimated 84 mL/min (50-200); Estimated Glomerular Filt Rate 83 ml/min (>60); GFR (African American) 100 ML/MIN (>60); Globulin 3.2 g/dL (1.3-3.2); Glucose 127 mg/dl (74-100); Magnesium 1.9 mg/dl (1.6-2.3); Potassium 3.4 mmoL/L (3.5-5.1); Sodium 140 mmol/L (136-145); Total Protein,Serum 7.1 g/dl (6.3-8.2)
[2022-01-17 20:04] LABS: Bilirubin,Total < 0.1 mg/dl (0.2-1.3); Lactic Acid 1.5 mmol/L (0.7-2.1)
[2022-01-17 21:15] LABS: POC Glucose,Bedside 130 (70-110)
[2022-01-17 21:52] LABS: Adenovirus,PCR Not Detected (NotDetected); Bordetella Pertussis Not Detected (NotDetected); Chlamydophila Pneumoniae, PCR Not Detected (NotDetected); Coronavirus 229E Not Detected (NotDetected); Coronavirus NL63 Not Detected (NotDetected); Coronavirus OC43 Not Detected (NotDetected); Coronovirus HKU1,PCR Not Detected (NotDetected); Human Metapneumovirus Not Detected (NotDetected); Influenza A, PCR Not Detected (NotDetected); Influenza AH1, 2009 Not Detected (NotDetected); Influenza AH1, PCR Not Detected (NotDetected); Influenza AH3,PCR Not Detected (NotDetected); Influenza B, PCR Not Detected (NotDetected); Mycoplasma Pneumoniae, PCR Not Detected (NotDetected); Parainfluenza 1, PCR Not Detected (NotDetected); Parainfluenza 2, PCR Not Detected (NotDetected); Parainfluenza 4, PCR Not Detected (NotDetected); Respiratory Syncytial Virus Not Detected (NotDetected); Rhinovirus/Enterovirus Not Detected (NotDetected)
[2022-01-17 23:06] VITALS: PULSE 70; PULSE 71; O2SAT 96
[2022-01-17 23:10] LABS: Parainfluenza 3, PCR Detected (NotDetected)
[2022-01-18] VITALS (11 sets, daily range): BP systolic 114–167; BP diastolic 43–76; PULSE 65–89; RESP 18–22; TEMP 36.4–37.2; O2SAT 94–97; BMI 38.5
--- NOTE | 2022-01-18 05:02 | PC.NURSE ---
Patient started shift visible uncomfortable stating she is very short of breath. Patient received scheduled breathing tx and IV steroids with appropriate outcome. Patient is on 3L NC sating in the 90's, she states she wears 2L at home. Patient's cpap at bedside and in use while sleeping. Patient did become febrile with a temp of 101.1F patient medicated per mar with successful results. IV abx started per NOV.
[2022-01-18 08:19] LABS: Basophils # 0.1 K/mm3 (0-0.2); Basophils % 0.7 % (0.1-2.0); Eosinophils % 0.3 % (0.1-12.0); Hematocrit 36.1 % (37.0-47.0); Hemoglobin 11.8 g/dL (12.2-16.2); Lymphocytes # 1.5 K/mm3 (0.7-4.5); Lymphocytes % 15.1 % (10-50); Mean Corpuscular HGB Conc 32.8 g/dL (31.8-35.4); Mean Corpuscular Hemoglobin 30.7 pg (27.0-31.2); Mean Corpuscular Volume 93.5 fl (81-99); Mean Platelet Volume 11.4 fl (7.4-10.4); Monocytes # 0.5 K/mm3 (0.1-1.0); Neutrophils # 7.8 K/mm3 (1.8-7.8); Platelet Count 190 K/mm3 (142-424); Red Blood Count 3.86 M/mm3 (4.20-5.40); Red Cell Distribution Width 15.2 % (11.5-17.5); White Blood Count 9.9 K/mm3 (4.8-10.8)
[2022-01-18 08:31] LABS: Alanine Aminotransferase 28 U/L (12-78); Albumin Level 3.8 g/dl (3.5-5.0); Albumin/Globulin Ratio 1.2 (1.1-1.8); Alkaline Phosphatase 61 U/L (38-126); Anion Gap 8.6 mEq/L (5-15); Aspartate Amino Transferase 31 U/L (14-36); Blood Urea Nitrogen 13 mg/dl (7-17); Calcium 8.8 mg/dl (8.4-10.2); Carbon Dioxide 31 mmol/L (22.0-30.0); Chloride 100 mmol/L (98-107); Creatinine Clearance Estimated 87 mL/min (50-200); Estimated Glomerular Filt Rate 99 ml/min (>60); GFR (African American) 120 ML/MIN (>60); Globulin 3.2 g/dL (1.3-3.2); Glucose 131 mg/dl (74-100); Magnesium 1.9 mg/dl (1.6-2.3); Potassium 3.6 mmoL/L (3.5-5.1); Sodium 136 mmol/L (136-145)
[2022-01-18 08:32] LABS: Bilirubin,Total < 0.1 mg/dl (0.2-1.3)
--- NOTE | 2022-01-18 09:07 | HMH.PHAVTE ---
[facility] Pharmacy VTE Monitoring - Patient Demographics Admission date: 01/17/22 Report Date: 01/18/22 Time: 09:07 Allergies/Adverse Reactions: Patient Allergies cefaclor [From Ceclor] Allergy (Unknown, Verified 09/21/20 10:01) oxytetracycline Allergy (Unknown, Verified 09/21/20 10:01) tetracycline Allergy (Unknown, Verified 09/21/20 10:01) latex Allergy (Verified 10/15/20 12:42) Cephalosporins Allergy (Unknown, Uncoded 08/25/17 14:32) Height: 1.65 m Weight: 104.871 kg Patient Problems: Current Active Problems COPD (chronic obstructive pulmonary disease) (Chronic) Acute on chronic respiratory failure with hypoxemia (Acute) Hypothyroid (Chronic) Depression with anxiety (Chronic) Afib (Chronic) Class 2 obesity (Chronic) - VTE Risk Labs: VTE Related Lab Results Hgb 11.8 g/dL (12.2-16.2) L 01/18/22 07:17 Hct 36.1 % (37.0-47.0) L 01/18/22 07:17 Plt Count 190 K/mm3 (142-424) 01/18/22 07:17 BUN 13 mg/dl (7-17) 01/18/22 07:17 Creatinine 0.60 mg/dl (0.52-1.04) 01/18/22 07:17 Estimated Creat Clear 87 mL/min (50-200) 01/18/22 07:17 VTE Risk Level: Very Low Risk - Prophylaxis VTE Prophylaxis Ordered?: Yes Types of VTE Prophylaxis: TEDS Knee High, Pharmacological Location of Applied Device: Bilateral Lower Extremeties Pharmacologic Type: Other (XARELTO)
--- NOTE | 2022-01-18 11:54 | HMH.PHAINT ---
MEDICATION RECONCILIATION COMPLETED ON PATIENT USING EXTERNAL FILL HISTORY FROM PHARMACY. -LES TAYLOR, JONATHAND
--- NOTE | 2022-01-18 13:21 | PC.NURSE ---
Back to back timothy tx.'s given at this time per DR. Wyatt request.
--- NOTE | 2022-01-18 14:06 | HMH.ACPN2 ---
Internal Medicine - PN: Subj *Date: 01/18/22 *Time: 14:09 Interval history: Ms. Cote did well overnight. Feels a little bit better today. Responding to nebulizers. Fever overnight. Respiratory panel positive for parainfluenza. Discussed what this diagnosis means and how it explains her respiratory distress, lung findings on exam, and relatively clear chest x-ray. Poor appetite today. Denies diarrhea or vomiting. Exam Vital signs and Labs for Last 24 Hours: Temp Pulse Resp BP Pulse Ox 98.6 F 72 20 167/74 H 96 01/18/22 08:00 01/18/22 13:19 01/18/22 08:00 01/18/22 08:00 01/18/22 13:19 Laboratory Results - last 24 hr 01/17/22 19:43: WBC 11.4 H, RBC 4.06 L, Hgb 12.1 L, Hct 37.8, MCV 92.9, MCH 29.8, MCHC 32.0, RDW 15.0, Plt Count 198, MPV 11.3 H, Neut % (Auto) 65.4, Lymph % (Auto) 27.2, Taylor % (Auto) 6.0, Eos % (Auto) 0.1, Baso % (Auto) 1.2, Neut # (Auto) 7.5, Lymph # (Auto) 3.1, Taylor # (Auto) 0.7, Eos # (Auto) 0.0, Baso # (Auto) 0.1 01/17/22 19:43: Sodium 140, Potassium 3.4 L, Chloride 102, Carbon Dioxide 31 H, Anion Gap 10.4, BUN 13, Creatinine 0.70, Estimated Creat Clear 84, Estimated GFR 83, Est GFR ( Amer) 100, Glucose 127 H, Calcium 8.9, Magnesium 1.9, Total Bilirubin < 0.1 L, AST 30, ALT 27, Alkaline Phosphatase 69, Total Protein 7.1, Albumin 3.9, Globulin 3.2, Albumin/Globulin Ratio 1.2 01/17/22 19:43: Lactate 1.5 01/17/22 19:43: SARS-CoV-2 (PCR) Not detected, Influenza A Untype (PCR) Not detected, Influenza Type B (PCR) Not detected 01/17/22 19:43: Chlamy pneumoniae PCR Not detected, Adenovirus (PCR) Not detected, B. pertussis DNA (PCR) Not detected, Coronavirus OC43 (PCR) Not detected, Coronavirus HKU1 (PCR) Not detected, Coronavirus 229E (PCR) Not detected, Coronavirus NL63 (PCR) Not detected, Human Metapneumovir PCR Not detected, Influenza A (H1) PCR Not detected, Influ A (H1N1/09) PCR Not detected, Influenza A (H3) PCR Not detected, Influenza Type A (PCR) Not detected, Influenza Type B (PCR) Not detected, M. pneumoniae (PCR) Not detected, Parainfluenza 1 (PCR) Not detected, Parainfluenza 2 (PCR) Not detected, Parainfluenza 3 (PCR) Detected A, Parainfluenza 4 (PCR) Not detected, RSV (PCR) Not detected, Entero/Rhino (PCR) Not detected 01/17/22 21:05: POC Glucose 130 H 01/18/22 07:17: WBC 9.9, RBC 3.86 L, Hgb 11.8 L, Hct 36.1 L, MCV 93.5, MCH 30.7, MCHC 32.8, RDW 15.2, Plt Count 190, MPV 11.4 H, Neut % (Auto) 79.0, Lymph % (Auto) 15.1, Taylor % (Auto) 5.0, Eos % (Auto) 0.3, Baso % (Auto) 0.7, Neut # (Auto) 7.8, Lymph # (Auto) 1.5, Taylor # (Auto) 0.5, Eos # (Auto) 0.0, Baso # (Auto) 0.1 01/18/22 07:17: Sodium 136, Potassium 3.6, Chloride 100, Carbon Dioxide 31 H, Anion Gap 8.6, BUN 13, Creatinine 0.60, Estimated Creat Clear 87, Estimated GFR 99, Est GFR ( Amer) 120, Glucose 131 H, Calcium 8.8, Magnesium 1.9, Total Bilirubin < 0.1 L, AST 31, ALT 28, Alkaline Phosphatase 61, Total Protein 7.0, Albumin 3.8, Globulin 3.2, Albumin/Globulin Ratio 1.2 I & O for Last 24 hours: Intake & Output 01/15/22 01/16/22 01/17/22 01/18/22 23:59 23:59 23:59 23:59 Intake Total 360 / 360 Output Total 400 / 400 Balance -40 / -40 Weight 102.076 kg 104.871 kg Narrative: - Constitutional mild distress, obese, chronically ill appearing, cooperative - *Routine HEENT Exam Head: Present: normocephalic Eye: Present: EOMI, PERRL ENT: Present: mucous membranes moist - *Routine Neck Exam Present: supple. Absent: lymphadenopathy - *Routine Respiratory Exam Present: Interval improvement in air movement in left lung, right continues to have significant decreased breath sounds. Diffuse rhonchi and wheeze. Faint crackles in right lower lobe - *Routine Cardiovascular Exam Present: RRR - *Routine Abdominal Exam Present: soft, normoactive bowel sounds. Absent: tenderness - *Routine Extremities Exam Absent: cyanosis, clubbing, edema - *Routine Skin Exam Present: warm. Absent: rash - *Routine Neurologi
[2022-01-18 17:35] LABS: POC Glucose,Bedside 144 (70-110)
[2022-01-18 20:30] LABS: POC Glucose,Bedside 120 (70-110)
[2022-01-19] VITALS (11 sets, daily range): BP systolic 108–152; BP diastolic 63–82; PULSE 74–118; RESP 18–20; TEMP 36.5–37.6; O2SAT 95–99; BMI 38.6
--- NOTE | 2022-01-19 04:08 | PC.NURSE ---
Patient rested well this shift. Patient received scheduled breathing tx and IV steroids with appropriate outcome. Patient is on 3L NC sating in the 90's with nonl abored breathing. Patient's cpap at bedside and in use while sleeping. IV abx started per NOV.
[2022-01-19 06:24] LABS: POC Glucose,Bedside 132 (70-110)
[2022-01-19 06:28] LABS: POC Glucose,Bedside 130 (70-110)
[2022-01-19 07:10] LABS: Basophils # 0.1 K/mm3 (0-0.2); Basophils % 0.5 % (0.1-2.0); Eosinophils % 0.1 % (0.1-12.0); Hematocrit 34.9 % (37.0-47.0); Hemoglobin 11.3 g/dL (12.2-16.2); Lymphocytes # 1.3 K/mm3 (0.7-4.5); Lymphocytes % 12.7 % (10-50); Mean Corpuscular HGB Conc 32.4 g/dL (31.8-35.4); Mean Corpuscular Hemoglobin 30.7 pg (27.0-31.2); Mean Corpuscular Volume 94.7 fl (81-99); Monocytes # 0.4 K/mm3 (0.1-1.0); Monocytes % 4.1 % (1.7-9.3); Neutrophils # 8.4 K/mm3 (1.8-7.8); Neutrophils % 82.6 % (37.0-80.0); Platelet Count 187 K/mm3 (142-424); Red Blood Count 3.68 M/mm3 (4.20-5.40); Red Cell Distribution Width 15.3 % (11.5-17.5); White Blood Count 10.1 K/mm3 (4.8-10.8)
[2022-01-19 07:22] LABS: Alanine Aminotransferase 32 U/L (12-78); Albumin Level 3.8 g/dl (3.5-5.0); Albumin/Globulin Ratio 1.2 (1.1-1.8); Alkaline Phosphatase 68 U/L (38-126); Anion Gap 9.6 mEq/L (5-15); Aspartate Amino Transferase 37 U/L (14-36); Bilirubin,Total < 0.1 mg/dl (0.2-1.3); Blood Urea Nitrogen 14 mg/dl (7-17); Calcium 8.7 mg/dl (8.4-10.2); Carbon Dioxide 31 mmol/L (22.0-30.0); Chloride 100 mmol/L (98-107); Creatinine Clearance Estimated 87 mL/min (50-200); Estimated Glomerular Filt Rate 99 ml/min (>60); GFR (African American) 120 ML/MIN (>60); Globulin 3.2 g/dL (1.3-3.2); Glucose 139 mg/dl (74-100); Potassium 3.6 mmoL/L (3.5-5.1); Sodium 137 mmol/L (136-145)
--- NOTE | 2022-01-19 08:55 | P.PN_ITS ---
Internal Medicine - PN: Subj *Date: 01/19/22 *Time: 08:55 Interval history: Patient is up on the side of the bed, has eaten a little bit of breakfast. Continues to be somewhat wheezy when she gets up and moves around. Her thinks that she is better, as does she. Exam Vital signs and Labs for Last 24 Hours: Temp Pulse Resp BP Pulse Ox 98.0 F 80 18 150/71 H 98 01/19/22 04:00 01/19/22 06:18 01/19/22 04:00 01/19/22 04:00 01/19/22 06:18 Laboratory Results - last 24 hr 01/18/22 05:38: POC Glucose 120 H 01/18/22 17:16: POC Glucose 144 H 01/18/22 21:10: POC Glucose 130 H 01/19/22 06:17: POC Glucose 132 H 01/19/22 07:00: WBC 10.1, RBC 3.68 L, Hgb 11.3 L, Hct 34.9 L, MCV 94.7, MCH 30.7, MCHC 32.4, RDW 15.3, Plt Count 187, MPV 11.0 H, Neut % (Auto) 82.6 H, Lymph % (Auto) 12.7, [place] % (Auto) 4.1, Eos % (Auto) 0.1, Baso % (Auto) 0.5, Neut # (Auto) 8.4 H, Lymph # (Auto) 1.3, [place] # (Auto) 0.4, Eos # (Auto) 0.0, Baso # (Auto) 0.1 01/19/22 07:00: Sodium 137, Potassium 3.6, Chloride 100, Carbon Dioxide 31 H, Anion Gap 9.6, BUN 14, Creatinine 0.60, Estimated Creat Clear 87, Estimated GFR 99, Est GFR ( Amer) 120, Glucose 139 H, Calcium 8.7, Magnesium 2.0, Total Bilirubin < 0.1 L, AST 37 H, ALT 32, Alkaline Phosphatase 68, Total Protein 7.0, Albumin 3.8, Globulin 3.2, Albumin/Globulin Ratio 1.2 I & O for Last 24 hours: Intake & Output 01/16/22 01/17/22 01/18/22 01/19/22 11:59 11:59 11:59 11:59 Intake Total 360 / 360 1180 / 1180 Output Total 400 / 400 1300 / 1300 Balance -40 / -40 -120 / -120 Weight 231 lb 3.2 oz 231 lb 12.8 oz Microbiology Reports for the Last 24 Hours: Microbiology 01/18/22 10:40 Sputum - Expectorated Sputum Gram Stain - Final Narrative: Alert, oriented, pleasant. Heart rate regular. No pedal or hand edema noted. Neurologically intact, no rash. Abdomen soft, obese. Lungs continue to be fairly tight with some wheezing, scattered rhonchi when she takes a deep breath. She is able to move air throughout all lung yuen, however. Assessment and Plan (1) Acute on chronic respiratory failure with hypoxemia Status: Acute Category: Medical Code(s): J96.21 - Acute and chronic respiratory failure with hypoxia (2) COPD (chronic obstructive pulmonary disease) Status: Chronic Category: Medical Code(s): J44.9 - Chronic obstructive pulmonary disease, unspecified (3) Hypothyroid Status: Chronic Category: Medical Code(s): E03.9 - Hypothyroidism, unspecified (4) Depression with anxiety Status: Chronic Category: Medical Code(s): F41.8 - Other specified anxiety disorders (5) Afib Status: Chronic Qualifiers: Atrial fibrillation type: longstanding persistent Qualified Code(s): I48.11 - Longstanding persistent atrial fibrillation Category: Medical Code(s): I48.91 - Unspecified atrial fibrillation (6) Class 2 obesity Status: Chronic Category: Medical Code(s): E66.9 - Obesity, unspecified - Assessment and plan all Dx Assessment and Plan for all problems:: Slow improvement from what seems to be viral pneumonitis. Continue current therapy, nebs, steroids. Restart home inhalers when they are available. Discussion about alpha-1 antitrypsin family history noted in previous charts. Agree with testing, pulmonary consultation tomorrow.
[2022-01-20] VITALS: BP 131/91; PULSE 67; RESP 16; TEMP 36.9; O2SAT 98
[2022-01-20 02:44] VITALS: PULSE 77; PULSE 82
[2022-01-20 04:00] VITALS: BP 107/77; PULSE 110; RESP 16; TEMP 36.2; O2SAT 96
[2022-01-20 05:00] VITALS: BMI 39.0
--- NOTE | 2022-01-20 05:57 | PC.NURSE ---
pt refusing her fingersticks. Pt stated that even on steriods her blood sugar has been fine ands he no longer wants to have her finger pocked. Educated Pt on cleaning her cpap and she stated that she does have a routine cleaning schedule. PT stated that she felt that she was ready to go home today. remains on 4l of 02 via nc and cpap at .
[2022-01-20 06:02] VITALS: PULSE 83; PULSE 85; O2SAT 99
[2022-01-20 08:00] VITALS: BP 132/84; PULSE 63; RESP 17; TEMP 36.9; O2SAT 97
--- NOTE | 2022-01-20 09:07 | HMH.DCSUM ---
General - General Admission date:: 01/17/22 Discharge date: 01/20/22 HPI HPI: 71-year-old female with history of chronic hypoxemic respiratory who presented to our office today with worsening cough, shortness of breath, increased oxygen requirement. States she been feeling worse since Thursday. Started having productive cough. Having nighttime sweats, increased body aches. Started on antibiotics in the outpatient setting with no improvement yet, but is developed diarrhea from the antibiotics. In our office with her , who is more dyspneic on interview requiring increased oxygen requirement to maintain sats in the low 90s. Decision made to admit from the office. On initial labs and imaging, has mild elevation of white count, presumed respiratory infection, and fever. CXR with hyperexpansion but no appreciable focal consolidation. Marked perihilar congestion. Negative for Flu and Covid on initial swabs. Hospital Course Hospital Course: Patient was admitted, chest x-ray was clear, found to have significant wheezing and this was treated with IV steroids, fluids and nebulizer treatments. She improved but very slowly. Parainfluenza was detected on PCR testing and her symptoms are certainly consistent with viral pneumonitis. This morning she was better, closer to her baseline, able to get around her hospital room and do her ADLs with minimal exacerbation of wheezing. She will be discharged home. 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 We will prescribe prednisone, azithromycin for anti-inflammatory effect. She has oxygen at home and we will renew her nebulizer prescription. We will follow her up at the end of the week. Objective Vital signs: Temp Pulse Resp BP Pulse Ox 98.5 F 63 17 132/84 97 01/20/22 08:00 01/20/22 08:00 01/20/22 08:00 01/20/22 08:00 01/20/22 08:00 no acute distress, obese - *Routine HEENT Exam Head: Present: normocephalic Eye: Present: EOMI, PERRL ENT: Present: mucous membranes moist - *Routine Neck Exam Present: supple - *Routine Respiratory Exam Present: accessory muscle use, prolonged expiratory phase, wheezes Comments: Improved over admission - *Routine Cardiovascular Exam Present: RRR - *Routine Abdominal Exam Present: soft, normoactive bowel sounds. Absent: tenderness - *Routine Extremities Exam Absent: cyanosis, clubbing, edema - *Routine Skin Exam Present: warm. Absent: rash - Detailed Eye Exam Eyelids: Bilateral normal inspection Results Labs on day of discharge: Preliminary micro results at discharge 01/17/22 19:43 Blood Culture - Preliminary Blood NO GROWTH AFTER 48 HOURS 01/17/22 19:43 Blood Culture - Preliminary Blood NO GROWTH AFTER 48 HOURS DS: Diagnosis - Discharge Diagnosis (1) Acute on chronic respiratory failure with hypoxemia Status: Acute (2) COPD (chronic obstructive pulmonary disease) Status: Chronic (3) Hypothyroid Status: Chronic (4) Depression with anxiety Status: Chronic (5) Afib Status: Chronic (6) Class 2 obesity Status: Chronic Discharge Plan - Patient Discharge Instructions ACTIVITY: Continue current activity DIET: continue same diet - Follow up Plan Follow up with: David Vargas MD [Staff Physician] - 01/23/22 Disposition: Home, Self-Care Condition at discharge:: Improved Home Medications: Home Medications Medication Instructions Recorded Confirmed Type biotin 5,000 mcg disintegrating 10,000 mcg PO BID 03/26/18 01/18/22 History tablet citalopram 20 mg tablet 20 mg PO DAILY 03/26/18 01/18/22 History coenzyme Q10 100 mg capsule 300 mg PO DAILY 03/26/18 01/18/22 History dofetilide 500 mcg capsule 500 mcg PO BID 03/26/18 01/18/22 History furosemide 40 mg tablet 40 mg PO DAILY 03/26
--- NOTE | 2022-01-20 10:31 | HMH.PULMCON ---
*Admission Date: 01/17/22 *Reason for consult:: Asthma exacerbation, acute on chronic hypoxic respiratory failure *History of present illness: Ms. Cote is a 71-year-old female history of asthma not compliant with her inhaler therapy, frequent sinus issues presented hospital worsening respiratory distress and was initiated on nebulizer therapy steroids and antibiotics with significant improvement in her respiratory status and pulmonary was called for further management. [facility] History Medical History: Reports:: Arrhythmia, Atrial Fibrillation, Congestive Heart Failure, Chronic Obstructive Pulmonary Disease (COPD), Gastroesophageal Reflux Disease(GERD), Home Oxygen, Hyperlipidemia, Hypertension, Internal Pacemaker, Valvular Heart Disease Denies:: Cancer, Diabetes Mellitus Type 1, Diabetes Mellitus Type 2, MRSA, Seizures *Have you ever received a pneumonia vaccine?: Yes *Have you received a flu vaccine this season?: Yes Other Medical History: Reports: Anemia, Arthritis, Cataracts, Hypothyroidism, Thyroid Disease. Denies: Blood Transfusion Reaction Laterality Cases: Right: Arthroscopy Shoulder Other Surgeries: Yes: Bariatric Surgery (gastric bypass), Cholecystectomy, Hernia Repair (multiple), Pacemaker Amputation: No - *Social History Last grade of school completed: Advanced degree Smoking Status: Former smoker # Packs/Day (cigarettes): 3 Alcohol Intake: never Alcohol Intake Frequency:: holidays/special occasions only Substance Use Type: denies use *Occupational Status:: retired Housing: house Household Members: spouse *Travel in the last 8 weeks: None Family Hx:: No significant family history ROS - Cons Reports body ache(s) - Eyes Denies change in vision - ENT Reports nasal congestion, Reports nasal discharge, Reports nasal obstruction - Card Reports shortness of breath, Reports shortness of breath with activity - Resp Respiratory: Reports chest congestion, Reports cough, Reports dyspnea on exertion, Denies excessive phlegm production, Reports cough with sputum production, Reports wheezing - GI Gastrointestingal: Denies: abdominal pain - [place] Musculoskeletal: Reports muscle weakness - Psych Denies thoughts of hurting/killing others, Denies thoughts of hurting/killing yourself Meds Home Medications Medication Instructions Recorded Confirmed Type biotin 5,000 mcg disintegrating 10,000 mcg PO BID 03/26/18 01/18/22 History tablet citalopram 20 mg tablet 20 mg PO DAILY 03/26/18 01/18/22 History coenzyme Q10 100 mg capsule 300 mg PO DAILY 03/26/18 01/18/22 History dofetilide 500 mcg capsule 500 mcg PO BID 03/26/18 01/18/22 History furosemide 40 mg tablet 40 mg PO DAILY 03/26/18 01/18/22 History gabapentin 300 mg capsule 600 mg PO BID 03/26/18 01/18/22 History hydrocodone 7.5 mg-acetaminophen 1 tab PO TIDP PRN 03/26/18 01/18/22 History 325 mg tablet levothyroxine 50 mcg tablet 50 mcg PO DAILY 03/26/18 01/18/22 History lorazepam 1 mg tablet 1 mg PO DAILYP PRN 03/26/18 01/18/22 History melatonin 3 mg tablet 3 mg PO HSP PRN 03/26/18 01/18/22 History metaxalone 800 mg tablet 800 mg PO TID 03/26/18 01/18/22 History mometasone-formoterol HFA 200 2 puff INHALATION BID 03/26/18 01/18/22 History mcg-5 mcg/actuation aerosol inhaler montelukast 10 mg tablet 10 mg PO PM 03/26/18 01/18/22 History nebivolol 5 mg tablet 5 mg PO DAILY 03/26/18 01/18/22 History rivaroxaban 20 mg tablet 20 mg PO QPMWITHMEAL 03/26/18 01/18/22 History simvastatin 40 mg tablet 40 mg PO HS 03/26/18 01/18/22 History sucralfate 1 gram tablet 1 g PO QID 03/26/18 01/18/22 History thiamine HCl (vitamin B1) 250 mg 1,000 mg PO DAILY 03/26/18 01/18/22 History tablet Albuterol Sulfate [Albuterol 2 puff IH Q4HP PRN 07/04/20 01/18/22 History Sulfate Hfa] Alpha Lipoic Acid 200 mg PO DAILY 07/04/20 01/18/22 History Calcium Citrate/Vitamin D3 1 each PO DAILY 07/04/20 01/18/22 History [Calcium Citrate - Vit D Tablet] Cholecalciferol (Vitamin D3) 125 m
[2022-01-20 10:42] VITALS: PULSE 107; PULSE 109
--- NOTE | 2022-01-20 11:03 | PC.NURSE ---
RESP CARE NOTE: Patient walked in hallway on room air. SPO2 decreased to 88% on room air while walking in the leyva, Oxygen re applied at 2 lpm and patient insisted on returning to her room.
[2022-01-21 05:10] LABS: Alpha-1-Antitrypsin 112 mg/dL (101-187)
--- NOTE | 2022-01-21 14:43 | CARE MANAGER ---
I called and spoke with patient today to discuss post discharge status. Patient confirmed that she has started the new meds prescribed at discharge. Patient aware of upcoming appointments. She states that she is feeling better and has no concerns at this time.
--- NOTE | 2022-01-21 14:56 | CARE MANAGER ---
Contacted Teo abrams MD instructed patient she could turn her O2 up to 3-5LPM/NC if needed.
== END 2022-01-20 11:40 | disposition home or self-care (01) | DRG 189 ==
PROVIDERS: Admitting Provider Internal Medicine Adolescent Medicine; PCP Nurse Practitioner Family; Visit Provider Internal Medicine Adolescent Medicine
DX: J96.21 Acute and chronic respiratory failure with hypoxia (principal); J12.9 Viral pneumonia, unspecified; I48.11 Longstanding persistent atrial fibrillation; J96.22 Acute and chronic respiratory failure with hypercapnia; E03.9 Hypothyroidism, unspecified; F41.8 Other specified anxiety disorders; J43.9 Emphysema, unspecified; E66.9 Obesity, unspecified; F17.210 Nicotine dependence, cigarettes, uncomplicated; Z98.84 Bariatric surgery status; Z20.822 Contact with and (suspected) exposure to COVID-19; B34.8 Other viral infections of unspecified site
CPT/HCPCS: 36415; 71046; 80053; 82103; 82104; 82962; 83605; 83735; 85025; 87040; 87070; 87205; 87486; 87581; 87632; 87798; 94640; 94761; C9803; J1956; U0003; U0005

== ENCOUNTER 2022-02-05 10:30 | Outpatient (CLI) | payer MEDICARE, SELFPAY ==
[2022-02-05 10:42] VITALS: BP 112/66; PULSE 70; RESP 20; O2SAT 98
--- NOTE | 2022-02-05 14:06 | XR_ITS ---
FINAL REPORT CLINICAL HISTORY: SOB COMPARISON: January 17, 2022 FINDINGS: Two views of the chest were obtained. There is a left subclavian pacemaker. The heart size and pulmonary vascularity are within normal limits. The mediastinum is normal. There is persistent bronchial wall thickening consistent with bronchitis. There is no pneumothorax. The bony thorax is intact. IMPRESSION: Persistent bronchitis. Reviewed, Interpreted and Dictated by Simon Molina III, MD Transcribed by David Pandey Authenticated and [facility]
== END 2022-02-05 10:42 | disposition home or self-care (01) ==
LOC: INF 10:31
PROVIDERS: PCP Nurse Practitioner Family; Visit Provider Nurse Practitioner Family
DX: R06.02 Shortness of breath (principal)
CPT/HCPCS: 71046; 96372; J0897

== ENCOUNTER → 2022-02-20 09:16 | Outpatient (POV) | payer MEDICARE, SELFPAY ==
[2022-02-20 09:46] VITALS: BP 136/85; PULSE 69; RESP 18; TEMP 36.3; O2SAT 100; BMI 39.1
--- NOTE | 2022-02-20 12:25 | HMH.PAINSOAP ---
[facility] Pain Management SOAP Note Subjective:: Patient is a pleasant 72-year-old female who presents today for follow-up. Patient is currently being treated for degenerative disease of lumbar spine with lumbar radiculopathy symptoms, spinal stenosis with neurogenic claudication symptoms. Patient previously had a minimally invasive lumbar decompression procedure that was done several years ago and has done well since the procedure. Today, patient presents with worsening low back pain that radiates to bilateral lower extremities. She states that she has fallen a few times in the last couple of weeks. She wants to know if she can have a repeat injection today. A lot of her pains are towards her right upper buttock that radiates to her posterior right knee. At times, she does have radiating pain all the way down to her foot. She rates her pain today as 7 out of 10. For pain, she takes [place] 7.5 mg 3 times a day and gabapentin 300 mg 4 times a day that are prescribed by Dr. Vargas. Trino [id number] with an active morphine equivalent of 23. Review of Systems: General: No recent weight changes, no fever, no sleep disturbances Respiratory: No cough, no shortness of air, no recurring pulmonary infections Cardiovascular/peripheral vascular: No chest pain, no palpitations, no edema, no shortness of breath Gastrointestinal: No new onset incontinence, normal bowel movements reported Genitourinary: No new onset incontinence Musculoskeletal: Low back pain Psychiatric: [Normal mood/affect] Neurological: [Denies weakness in extremities], [denies balance issues] Objective:: Physical Exam: General: Alert and oriented x3, no acute distress, pleasant and cooperative; on 2LO2 Lungs: Respirations even and unlabored, symmetrical chest expansion Eyes: PERRL Musculoskeletal: Flexion and extension of lumbar [spine] somewhat guarded secondary to pain, [antalgic gait noted]; right SI is positive for T[place]URCIO, Sandoval's, [place]'s, [place]'s, compression, and distraction. Neurological: Speech clear, no gross sensory deficit Assessment:: Degenerative disease of lumbar spine with lumbar radiculopathy symptoms, spinal stenosis with neurogenic claudication, sacroiliitis Plan:: Patient presents today with worsening low back pain that radiates to bilateral lower extremities. She previously had a minimally invasive lumbar decompression procedure that has done well. Patient has tried and failed conservative therapies such as oral medication, physical therapy, and home exercises for greater than 6 weeks. We will schedule the patient for a lumbar epidural steroid injection at L4-L5. Risk and benefits have been discussed with the patient. Patient will like to proceed with this procedure. Patient is on Xarelto and will need to stop this medication prior to her procedure. We will reach out to her PCP to see if the pt can stop this medication temporarily. Patient does present with a right SI pain. She has tenderness to palpation around the right SI joint. She has a positive SI exam. If the patient gets minimal relief from the lumbar epidural steroid injection, we will schedule the patient for a right SI injection. Patient has been instructed to contact the clinic with any concerns before the next appointment. Dr. Duran has reviewed this note and agrees with this plan of care. This note was dictated using voice recognition software and make contain errors or omissions. [facility] History Medical History: Reports:: Arrhythmia, Atrial Fibrillation, Congestive Heart Failure, Chronic Obstructive Pulmonary Disease (COPD), Diabetes Mellitus Type 2, Gastroesophageal Reflux Disease(GERD), Home Oxygen, Hyperlipidemia, Hypertension, Internal Pacemaker, MRSA, Valvular Heart Disease Denies:: Cancer, Diabetes Mellitus Type 1, Seizures *Have you ever received a pneumonia vaccine?: Yes *Have you received a flu vaccine this season?: Yes Other Medical History: Reports: Anemia, Arthritis, Cataracts, Hyp
== END ==
PROVIDERS: Visit Provider Student in an Organized Health Care Education/Training Program
DX: M51.16 Intervertebral disc disorders with radiculopathy, lumbar region (principal); M46.1 Sacroiliitis, not elsewhere classified; M48.062 Spinal stenosis, lumbar region with neurogenic claudication
CPT/HCPCS: 99212; G0463

== ENCOUNTER 2022-03-07 14:39 | Day surgery (SDC) | payer MEDICARE, SELFPAY ==
[2022-03-07 14:55] VITALS: BP 155/88; PULSE 88; RESP 18; TEMP 36.3; O2SAT 97; BMI 40.5
[2022-03-07 15:32] VITALS: BP 132/74; PULSE 74
[2022-03-07 15:33] VITALS: BP 142/74; PULSE 79; RESP 18
[2022-03-07 15:46] VITALS: BP 139/85; PULSE 82; RESP 18; O2SAT 96
--- NOTE | 2022-03-07 15:50 | HMH.PMPROC ---
- Procedure Date: 03/07/22 Time: 15:50 Anesthesiologist:: Imtiaz Duran MD Complications:: None Pre-procedure Diagnosis:: Degenerative disc disease of lumbar spine with lumbar radiculopathy symptoms lumbar spinal stenosis with neurogenic claudication symptoms Post-procedure Diagnosis:: Same Indications for Procedure:: This patient is a pleasant 72-year-old white female who we are treating for low back pain with lumbar radiculopathy symptoms and lumbar spinal stenosis with neurogenic claudication symptoms. She previously had minimally invasive lumbar decompression which has helped tremendously. This was done approximately 18 months ago. She still has neurogenic claudication symptoms and increasing pain in her back and legs. We will do a lumbar epidural steroid injection today to see if this will help with her pain symptoms. She is currently on [place] 7.5 mg 3 times a day and gabapentin 300 mg 4 times a day. I do believe she may be asked spinal cord stimulator candidate in the future. Procedure Details:: Informed consent was obtained and the risk and benefits of the procedure was explained to the patient. The patient was taken to the procedure room. The patient was placed prone on the procedure table. The patient was prepped and draped in sterile fashion. C-arm fluoroscopy was used to view the lumbar spine. Skin and subcutaneous tissues were anesthetized using lidocaine. I placed an 18-gauge epidural needle and advanced into the L4-L5 interspace using fluoroscopic guidance and [id number] to air. After confirmation of needle placement in the epidural space with dye I injected 2 mL of lidocaine 1.5% with Depo-Medrol 80 mg. Patient tolerated the procedure well with no complications. Plan and Disposition:: We will follow-up with her in 2 weeks. Will reevaluate symptoms at that time. We will give her information on spinal cord stimulation as a long-term treatment option. We will also have the [employer] patient financial representative contact her.
== END 2022-03-07 15:46 | disposition home or self-care (01) ==
LOC: SC.PAINP 14:40
PROVIDERS: PCP Nurse Practitioner Family; Visit Provider Anesthesiology
DX: M51.16 Intervertebral disc disorders with radiculopathy, lumbar region (principal); M48.062 Spinal stenosis, lumbar region with neurogenic claudication
CPT/HCPCS: 62323; J1040; Q9966

== ENCOUNTER → 2022-04-03 14:40 | Outpatient (POV) | payer MEDICARE, SELFPAY ==
[2022-04-03 14:58] VITALS: BP 148/88; PULSE 89; RESP 20; TEMP 36.5; BMI 40.5
--- NOTE | 2022-04-03 15:19 | HMH.PAINSOAP ---
[facility] Pain Management SOAP Note Subjective:: Patient is a pleasant 72-year-old female who presents today for follow-up. Patient is currently being treated for degenerative disease of lumbar spine with lumbar radiculopathy symptoms, spinal stenosis with neurogenic claudication symptoms. Patient had a lumbar epidural steroid injection at L4-L5 on 03/07/2022. She stated that this injection took about a week to start working and lasted a week. She stated that she would rate it at a 50% improvement. She says her pain is worse with standing. Today she rates her pain a 5 out of 10 and states it is more in her upper back. She states that she believes she slept on it wrong last night. Patient previously had a minimally invasive lumbar decompression procedure that was done several years ago and has done well since the procedure. She does have multiple falls in her history. At her previous visit we did talk to her regarding a spinal cord stimulator implant. She is requesting more information on it at today's visit. For pain, she takes [place] 7.5 mg 3 times a day and gabapentin 300 mg 4 times a day that are prescribed by Dr. Vargas. Patient has tried other conservative measures including [id number] medications, topical creams, ice, heat, physical therapy and at home exercises for more than 6 weeks with minimal relief. Her Trino is [id number] with a morphine equivalent of 23. It has been reviewed and is appropriate. Review of Systems: General: No recent weight changes, no fever, no sleep disturbances Respiratory: No cough, no shortness of air, no recurring pulmonary infections Cardiovascular/peripheral vascular: No chest pain, no palpitations, no edema, no shortness of breath Gastrointestinal: No new onset incontinence, normal bowel movements reported Genitourinary: No new onset incontinence Musculoskeletal: Low back pain, upper back pain, bilateral extremity pain Psychiatric: [Normal mood/affect] Neurological: [Denies weakness in extremities], [denies balance issues] Objective:: Physical Exam: General: Alert and oriented x3, no acute distress, pleasant and cooperative; on 2LO2 Lungs: Respirations even and unlabored, symmetrical chest expansion Eyes: PERRL Musculoskeletal: Flexion and extension of lumbar [spine] somewhat guarded secondary to pain, [antalgic gait noted]; Neurological: Speech clear, no gross sensory deficit Assessment:: Degenerative disease of lumbar spine with lumbar radiculopathy symptoms, spinal stenosis with neurogenic claudication, sacroiliitis Plan:: Patient presents today with upper back pain and low back pain that radiates to bilateral lower extremities. She previously had a minimally invasive lumbar decompression procedure that has done well. Patient has tried and failed conservative therapies. I have discussed with the patient regarding a spinal cord stimulator trial. Risk and benefits were discussed with the patient at today's visit. She would like to proceed forward with this procedure. I will order a psychiatric evaluation today. Patient is on Xarelto. We will follow-up with the patient after her psychiatric evaluation. Patient has been instructed to contact the clinic with any concerns before the next appointment. Dr. Duran has reviewed this note and agrees with this plan of care. This note was dictated using voice recognition software and make contain errors or omissions. [facility] History I have reviewed the patient's past medical history: Yes Medical History: Reports:: Arrhythmia, Atrial Fibrillation, Congestive Heart Failure, Chronic Obstructive Pulmonary Disease (COPD), Diabetes Mellitus Type 2, Gastroesophageal Reflux Disease(GERD), Home Oxygen, Hyperlipidemia, Hypertension, Internal Pacemaker, Valvular Heart Disease Denies:: Cancer, Diabetes Mellitus Type 1, MRSA, Seizures *Have you ever received a pneumonia vaccine?: Yes *Have you received a flu vaccine this season?: Yes Other Medical History: Report
== END ==
PROVIDERS: Visit Provider Student in an Organized Health Care Education/Training Program
DX: M51.16 Intervertebral disc disorders with radiculopathy, lumbar region (principal); M48.062 Spinal stenosis, lumbar region with neurogenic claudication; M46.1 Sacroiliitis, not elsewhere classified
CPT/HCPCS: 99212; G0463

== ENCOUNTER → 2022-07-04 15:22 | Outpatient (CLI) | payer MEDICARE, SELFPAY ==
--- NOTE | 2022-07-04 15:34 | MM_ITS ---
PROCEDURE INFORMATION: Exam: MG Bilateral Screening 3D Mammography Exam date and time: 07/04/2022 3:24 PM Age: 72 years old Clinical indication: Screening examination TECHNIQUE: Imaging protocol: Bilateral Screening tomosynthesis and 2D mammography including computer-aided detection (CAD) when performed. COMPARISON: 1. MG MM DIG SCREENING MAMM BI W/CAD 06/05/2021 8:53 AM 2. MG MM DIG SCREENING MAMM BI W/CAD 06/04/2020 2:46 PM 3. SD MM DIG MAMM BI DX W/CAD 04/18/2019 3:30 PM 4. MG DMSB DIG MAMM-SCREEN [place] W/CAD 07/23/2017 8:46 AM FINDINGS: MAMMOGRAPHY: Breast composition: There are scattered areas of fibroglandular density. Mass: None. Architectural distortion: No new or suspicious architectural distortion. Calcifications: No new or suspicious calcifications are present Asymmetric density: No new or suspicious asymmetric density is present Skin thickening: None. Axillary adenopathy: None. Other findings: Left chest wall cardiac pacemaker obscures the upper left pectoralis region IMPRESSION: No mammographic evidence of malignancy. Recommend annual screening mammography unless otherwise clinically indicated. ASSESSMENT: BI-RADS category 1: Negative
== END ==
PROVIDERS: PCP Nurse Practitioner Family; Visit Provider Internal Medicine Adolescent Medicine
DX: Z12.31 Encounter for screening mammogram for malignant neoplasm of breast (principal)
CPT/HCPCS: 77063; 77067

== ENCOUNTER 2022-07-08 10:00 | Outpatient (RCR) | payer MEDICARE, SELFPAY | END 2022-07-08 10:05 | disposition home or self-care (01) | LOC: PT 10:00 | PROVIDERS: PCP Nurse Practitioner Family; Visit Provider Physician Assistant | DX: R26.89 Other abnormalities of gait and mobility (principal) | CPT/HCPCS: 97010; 97110; 97112; 97163; 97164 ==

== ENCOUNTER → 2022-07-10 15:15 | Outpatient (CLI) | payer MEDICARE, SELFPAY ==
[2022-07-10 15:43] LABS: Basophils # 0.1 K/mm3 (0-0.2); Basophils % 0.8 % (0.1-2.0); Eosinophils # 0.2 K/mm3 (0.0-0.4); Eosinophils % 1.9 % (0.1-12.0); Hematocrit 38.5 % (37.0-47.0); Hemoglobin 12.2 g/dL (12.2-16.2); Lymphocytes # 2.9 K/mm3 (0.7-4.5); Mean Corpuscular HGB Conc 31.6 g/dL (31.8-35.4); Mean Corpuscular Hemoglobin 30.4 pg (27.0-31.2); Mean Corpuscular Volume 96.1 fl (81-99); Mean Platelet Volume 10.9 fl (7.4-10.4); Monocytes # 0.6 K/mm3 (0.1-1.0); Neutrophils # 4.6 K/mm3 (1.8-7.8); Neutrophils % 55.3 % (37.0-80.0); Platelet Count 239 K/mm3 (142-424); Red Cell Distribution Width 14.2 % (11.5-17.5); White Blood Count 8.4 K/mm3 (4.8-10.8)
[2022-07-10 16:06] LABS: Chloride 103 mmol/L (98-107); Potassium 4.3 mmoL/L (3.5-5.1); Sodium 140 mmol/L (136-145)
[2022-07-10 16:09] LABS: Anion Gap 10.3 mEq/L (5-15); Blood Urea Nitrogen 16 mg/dl (7-17); Carbon Dioxide 31 mmol/L (22.0-30.0); Estimated Glomerular Filt Rate 82 ml/min (>60); GFR (African American) 100 ML/MIN (>60)
[2022-07-10 16:10] LABS: Calcium 9.6 mg/dl (8.4-10.2); Glucose 84 mg/dl (74-100)
== END ==
PROVIDERS: PCP Internal Medicine Adolescent Medicine; Visit Provider Anesthesiology
DX: M51.36 Other intervertebral disc degeneration, lumbar region (principal)
CPT/HCPCS: 36415; 80048; 85025

== ENCOUNTER 2022-07-11 09:16 | Day surgery (SDC) | payer MEDICARE, SELFPAY ==
[2022-07-08 12:47] VITALS: BMI 41.0
[2022-07-11] VITALS (7 sets, daily range): BP systolic 129–186; BP diastolic 61–98; PULSE 70–85; RESP 18; TEMP 36.1–36.9; O2SAT 94–100
[2022-07-11 09:39] LABS: POC Glucose,Bedside 96 (70-110)
--- NOTE | 2022-07-11 11:59 | EXP.ANES.CKL ---
[facility] Medical History History of cardiac pacemaker Hyperlipidemia Hypertension Hypoglycemia Sleep apnea Surgical History History of breast biopsy History of cholecystectomy History of gastric bypass History of hernia repair History of repair of hiatal hernia Family History Other Family history of cancer Social History Smoking Status: Former smoker alcohol intake: never substance use type: denies use current occupational status: other Travel in the last 8 weeks: None household members: spouse housing: house current occupational exposures/hazards: No caffeine: No [facility] Anesthesia Checklist Patient Identification Patient Identification: Arm Band Structural Data Admitted From: Home Planned Operative Procedure/s: Neurostimulator Trial Lead Placement Consent for Planned Operative Procedure(s) Verified: Yes Verified Documents: Surgical Consent and History and Physical NPO Status Verified Time NPO: 00:00 Additional verifications Anesthesia Reactions: No Hx Blood Transfusions: No Blood Transfusion Reaction: No Airway Assessment C-Spine Mobility Assessed: Yes TMJ Mobility Assessed: Yes Neurological Assessment Level of Consciousness: Awake and Alert Anesthesia Plan Anesthesia Risk discussed: Yes Anesthesia Plan: Verified ASA Class: III Anesthesia Type: MAC
--- NOTE | 2022-07-11 12:24 | P.OP_ITS ---
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 She is failed all previous conservative treatments including injections, medications, physical therapy and minimally invasive lumbar decompression. She is not a candidate for any surgery. She has had a successful psychological evaluation. She presents for spinal cord stimu lator trial today. Operative findings:: None Operative note:: Informed consent was obtained and the risk and benefits of the procedure were explained to the patient. Patient was taken the operating room placed prone on the procedure table. She was prepped and draped in sterile fashion. C-arm fluoroscopy was used to view the lumbar spine. The skin and subtenons tissues were anesthetized using lidocaine. I placed a 17-gauge epidural needle and advanced into the L2-L3 interspace. After confirmation of needle placement in the epidural space stimulator lead was inserted and advanced very easily to the T7-T8-T9 vertebral body. A second needle was inserted advanced again into the L2-L3 interspace. Again after confirmation of needle placement in the epidural space a second stimulating lead was inserted and advanced very easily to the T7-T8-T9 vertebral body. Lead placement was checked in AP and lateral views. The stylets and needles were removed. The leads were secured in place. The patient was programmed by the [employer] correspondence representative with good stimulation in all areas of pain. The patient was placed on a paresthesia free fast program. The patient was discharged home neurologic intact with good relief of pain symptoms. She was discharged home on Bactrim DS twice a day for 5 days. Plan and disposition: We will follow-up with this patient in 1 week for lead pull. We will continually make adjustments throughout the week. If patient has any problems questions they are to call us back in the pain clinic. Condition: stable Disposition: PACU Complications:: None
== END 2022-07-11 14:25 | disposition home or self-care (01) ==
PROVIDERS: PCP Nurse Practitioner Family; Visit Provider Anesthesiology
DX: M51.16 Intervertebral disc disorders with radiculopathy, lumbar region (principal); M48.062 Spinal stenosis, lumbar region with neurogenic claudication; Z79.899 Other long term (current) drug therapy; E11.9 Type 2 diabetes mellitus without complications
CPT/HCPCS: 63650; 82962; 96374; C1778; J3370

== ENCOUNTER → 2022-07-17 08:47 | Outpatient (POV) | payer MEDICARE, SELFPAY ==
[2022-07-17 09:26] VITALS: BP 144/75; PULSE 85; RESP 18; O2SAT 95; BMI 42.5
--- NOTE | 2022-07-17 10:27 | EXP.PAIN.SOA ---
[facility] Pain Management SOAP Note Subjective:: Patient is a pleasant 72-year-old female who presents today for follow-up of spinal cord stimulator trial. We are currently treating the patient for degenerative disc disease of lumbar spine with lumbar radiculopathy symptoms, lumbar spinal stenosis with neurogenic claudication symptoms. Today the patient rates her pain a 4 out of 10. Patient denies any new trauma or injury. Patient denies any change to the location or type of pain she experiences. Patient states that she has had significant improvement following the spinal cord stimulator trial and rates her pain relief approximately 60 to 80%. Patient has been able to increase her activity including doing things such as light housework and shopping. Patient states she was able to go yesterday to the mall for several hours with decreased pain. Patient did state that during the trial they were not able to get as good coverage along her right leg and she is talked to the [employer] human resources hr representative regarding altering placement of one of the leads when we do the official implant. In the past the patient has had injective therapy that provided some improvement including epidurals. Her last epidural on 03/07/2022 did provide 50% improvement however only lasted short-term. Patient has had a minimally invasive lumbar decompression in the past. Patient also has a history of falls. Patient is currently prescribed [place] 7.5 mg 3 times a day and gabapentin 300 mg 4 times a day from an outside provider. Patient denies any side effects from these medications. She states this medication does help take the edge off of her pain symptoms. Patient states at her last primary care doctor's visit she did discuss with her physician regarding having updated imaging prior to the implantation of the spinal cord stimulator implant. Patient states it has been years since she has had imaging of her spine and she feels like it has worsened significantly over time. Patient states she does have a family history of osteoporosis and is concerned regarding what condition her back is in currently. Patient states that her slat basket maker helper has confirmed that [facility] in [place] has a MRI machine that is compatible with her pacemaker. Patient is O2 dependent. Patient has tried and failed other conservative measures including tmpm-lop-lureqsa medications, topicals, heat and ice, physical therapy and at home exercising and stretching techniques for longer than 6 weeks. Her Trino is [id number]. It has been reviewed and appropriate. Review of Systems: General: No recent weight changes, no fever, no sleep disturbances Respiratory: No cough, no shortness of air, no recurring pulmonary infections Cardiovascular/peripheral vascular: No chest pain, no palpitations, no edema, no shortness of breath Gastrointestinal: No new onset incontinence, normal bowel movements reported Genitourinary: No new onset incontinence Musculoskeletal: Low back pain, bilateral leg pain, upper back pain Psychiatric: [Normal mood/affect] Neurological: [Denies weakness in extremities], [denies balance issues] Objective:: Physical Exam: General: Alert and oriented x3, no acute distress, pleasant and cooperative Lungs: Respirations even and unlabored, symmetrical chest expansion Eyes: PERRL Musculoskeletal: Flexion and extension of cervical and lumbar [spine] somewhat guarded secondary to pain, [antalgic gait noted] Neurological: Speech clear, no gross sensory deficit Assessment:: Degenerative disc disease of lumbar spine with lumbar radiculopathy symptoms, spinal stenosis with neurogenic claudications, upper back pain Plan:: Patient has had significant improvement of her pain symptoms following the spinal cord stimulator trial. Patient's leads were pulled at today's visit. The injection site looks clean, dry with no erythema. Patient did have limited range of motion of her cervical and lumbar spine during today's visit.
== END ==
PROVIDERS: PCP Internal Medicine Adolescent Medicine; Visit Provider Nurse Practitioner Family
DX: M51.16 Intervertebral disc disorders with radiculopathy, lumbar region (principal); M48.062 Spinal stenosis, lumbar region with neurogenic claudication
CPT/HCPCS: 99212; G0463

== ENCOUNTER 2022-08-08 10:37 | Outpatient (CLI) | payer MEDICARE, SELFPAY ==
[2022-08-08 11:00] VITALS: BP 114/71; PULSE 68; RESP 20; TEMP 36.9; O2SAT 95
== END 2022-08-08 11:15 | disposition home or self-care (01) ==
LOC: INF 10:38
PROVIDERS: PCP Internal Medicine Adolescent Medicine; Visit Provider Internal Medicine Adolescent Medicine
DX: M85.89 Other specified disorders of bone density and structure, multiple sites (principal); E53.8 Deficiency of other specified B group vitamins
CPT/HCPCS: 96372; J0897

== ENCOUNTER → 2022-10-29 13:00 | Outpatient (CLI) | payer MEDICARE, SELFPAY ==
[2022-10-29 13:34] LABS: Basophils # 0.1 K/mm3 (0-0.2); Eosinophils # 0.3 K/mm3 (0.0-0.4); Eosinophils % 2.9 % (0.1-12.0); Hematocrit 38.5 % (37.0-47.0); Hemoglobin 12.2 g/dL (12.2-16.2); Lymphocytes # 2.5 K/mm3 (0.7-4.5); Lymphocytes % 29.3 % (10-50); Mean Corpuscular HGB Conc 31.8 g/dL (31.8-35.4); Mean Corpuscular Hemoglobin 30.3 pg (27.0-31.2); Mean Corpuscular Volume 95.3 fl (81-99); Mean Platelet Volume 10.7 fl (7.4-10.4); Monocytes # 0.6 K/mm3 (0.1-1.0); Monocytes % 7.3 % (1.7-9.3); Neutrophils % 59.5 % (37.0-80.0); Platelet Count 233 K/mm3 (142-424); Red Blood Count 4.04 M/mm3 (4.20-5.40); Red Cell Distribution Width 14.1 % (11.5-17.5); White Blood Count 8.4 K/mm3 (4.8-10.8)
[2022-10-29 13:48] LABS: Chloride 106 mmol/L (98-107); Sodium 140 mmol/L (136-145)
[2022-10-29 13:49] LABS: Potassium 4.1 mmoL/L (3.5-5.1)
[2022-10-29 13:51] LABS: Blood Urea Nitrogen 20 mg/dl (7-17); Estimated Glomerular Filt Rate 82 ml/min (>60); GFR (African American) 100 ML/MIN (>60)
[2022-10-29 13:52] LABS: Anion Gap 7.1 mEq/L (5-15); Calcium 8.5 mg/dl (8.4-10.2); Carbon Dioxide 31 mmol/L (22.0-30.0); Glucose 89 mg/dl (74-100)
== END ==
PROVIDERS: PCP Internal Medicine Adolescent Medicine; Visit Provider Anesthesiology
DX: M51.36 Other intervertebral disc degeneration, lumbar region (principal); Z01.812 Encounter for preprocedural laboratory examination
CPT/HCPCS: 36415; 80048; 85025

== ENCOUNTER 2022-10-31 09:58 | Day surgery (SDC) | payer MEDICARE, SELFPAY ==
[2022-10-28 16:57] VITALS: BMI 42.4
[2022-10-31] VITALS (8 sets, daily range): BP systolic 107–152; BP diastolic 59–89; PULSE 70–76; RESP 14–22; TEMP 36.2–43; O2SAT 97–99
[2022-10-31 10:34] LABS: POC Glucose,Bedside 107 (70-110)
--- NOTE | 2022-10-31 11:03 | EXP.ANES.CKL ---
[facility] Disclaimer: The information contained in this section may have been updated after the patient was seen, as this information can be updated by other users. Medical History History of cardiac pacemaker Hyperlipidemia Hypertension Hypoglycemia Sleep apnea Surgical History History of breast biopsy History of cholecystectomy History of gastric bypass History of hernia repair History of repair of hiatal hernia Family History Other Family history of cancer Family history of hypertension History of [id number] deficiency Social History Smoking Status: Former smoker alcohol intake: never substance use type: denies use current occupational status: retired Travel in the last 8 weeks: None household members: spouse housing: house current occupational exposures/hazards: No caffeine: No [facility] Anesthesia Checklist Patient Identification Patient Identification: Arm Band and Verbal (Name & ) Structural Data Admitted From: Home Planned Operative Procedure/s: SCS Consent for Planned Operative Procedure(s) Verified: Yes NPO Status Verified Time NPO: 00:00 Additional verifications Anesthesia Reactions: No Hx Blood Transfusions: No Blood Transfusion Reaction: No Airway Assessment C-Spine Mobility Assessed: Yes TMJ Mobility Assessed: Yes Dentition: Good Dentition Neurological Assessment Level of Consciousness: Awake Hx Seizures: No Numbness or tingling in extremities: No Anesthesia Plan Anesthesia Risk discussed: Yes Anesthesia Plan: Verified ASA Class: III Anesthesia Type: MAC
--- NOTE | 2022-10-31 15:35 | P.OP_ITS ---
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 She has failed all previous conservative treatments including injections, oral medications, physical therapy and minimally invasive lumbar decompression for her spinal stenosis and neurogenic claudication symptoms. She has had a successful psychological evaluation. She has had a successful spinal cord stimulator trial. She presents for permanent placement of her spinal cord stimulator today. Operative findings:: Nexvet spinal cord stimulator system placed Operative note:: Informed consent was obtained the risk and benefits of the procedure were explained to the patient. Patient was taken the operating room placed prone on the procedure table. She was prepped and draped in sterile fashion. C-arm fluoroscopy was used to view the lumbar spine. The skin and subtenons tissues were anesthetized using lidocaine. We made an incision and dissected down to the lumbar paraspinous fascia. A 17-gauge epidural needle was inserted and advanced into the L1-L2 interspace. After combination of needle placement in the epidural space stimulating lead was inserted and advanced very easily to the T7-T8 vertebral body. A second needle was inserted and advanced again into the L1-L2 interspace. Again after confirmation of needle placement in the epidural space a second stimulating lead was inserted and advanced again very easily to the T7-T8 vertebral body. Leads were checked in AP and lateral views. The needles and stylets were removed. The leads were secured to the fascia with anchoring device and 2-0 Prolene. The generator pocket was created on the right flank. I tunneled leads from the back to the generator pocket and attached the leads to the generator. Impedances were checked and found to be okay. Both incisions were irrigated with antibiotic solution. Both incisions were then closed with 2-0 Vicryl followed by 4-0 nylon and devonte. The patient was placed in an abdominal binder taken recovery in stable condition. The patient was programmed by the [employer] business representative with good stimulation in all areas of pain. Patient was placed on a paresthesia free program. Patient tolerated the procedure well with no complications. Plan and disposition: We will follow-up with this patient in 1 week for wound check. We will follow-up in 2 weeks for suture and staple removal. If patient has any problems or questions she is to call us back in the pain clinic. Condition: stable Disposition: PACU Complications:: None
== END 2022-10-31 14:20 | disposition home or self-care (01) ==
PROVIDERS: PCP Internal Medicine Adolescent Medicine; Visit Provider Anesthesiology
DX: M51.16 Intervertebral disc disorders with radiculopathy, lumbar region (principal); M48.062 Spinal stenosis, lumbar region with neurogenic claudication; Z79.899 Other long term (current) drug therapy
CPT/HCPCS: 63650 ×2; 63685; 82962; 96374; C1778; C1820; J2704

== ENCOUNTER → 2022-11-07 09:39 | Outpatient (POV) | payer MEDICARE, SELFPAY ==
--- NOTE | 2022-11-07 10:03 | EXP.PAIN.SOA ---
[facility] Pain Management SOAP Note Subjective:: Patient is a pleasant 72-year-old female who presents today for follow-up of spinal cord stimulator implant on 10/31/2022. We are currently treating the patient for degenerative disc disease of lumbar spine with lumbar radiculopathy symptoms, lumbar spinal stenosis with neurogenic claudication symptoms. Patient denies any problems following this procedure. She states her pain today is a 7 out of 10. She states she does have some incisional pain however her back is been much better with the every day aches and pain she was experiencing prior to this surgery. Patient states that she did remove her wound VAC yesterday due to it continuing to sound an alarm because it is lost its seal. Patient did have 60 to 80% improvement with her spinal cord stimulator trial. Patient has had multiple injections in the past as well as a minimally invasive lumbar decompression. Patient is currently prescribed [place] 7.5 mg 3 times a day and gabapentin 300 mg 4 times a day. Patient denies any side effects from these medications. She states these medications do help manage her pain symptoms. Patient is O2 dependent. Patient also has a significant history of osteoporosis and cardiac history with a pacemaker implanted. Her Trino is [id number]. Its been reviewed and appropriate. Review of Systems: General: No recent weight changes, no fever, no sleep disturbances Respiratory: No cough, no shortness of air, no recurring pulmonary infections Cardiovascular/peripheral vascular: No chest pain, no palpitations, no edema, no shortness of breath Gastrointestinal: No new onset incontinence, normal bowel movements reported Genitourinary: No new onset incontinence Musculoskeletal: Low back pain Psychiatric: [Normal mood/affect] Neurological: [Denies weakness in extremities], [denies balance issues] Objective:: Physical Exam: General: Alert and oriented x3, no acute distress, pleasant and cooperative Lungs: Respirations even and unlabored, symmetrical chest expansion Eyes: PERRL Musculoskeletal: Flexion and extension of lumbar [spine] somewhat guarded secondary to pain, [antalgic gait noted] Neurological: Speech clear, no gross sensory deficit ORT score updated with low risk Assessment:: Degenerative disc disease of lumbar spine with lumbar radiculopathy symptoms, lumbar spinal stenosis with neurogenic claudication symptoms Plan:: Patient is doing well following her spinal cord stimulator implant surgery. Her incision sites are clean, dry, well approximated with minimal erythema noted. I have counseled the patient to continue her postop restrictions such as minimal bending, lifting, twisting continue to wear her abdominal binder or back brace to prevent seroma formation and no submerging in water until her incisions are fully healed. Patient will return to clinic next week for staple and suture removal if indicated. Patient is getting additional reprogramming at today's visit by [employer] equipment sales representative. Patient will return to clinic in 1 week for reevaluation of symptoms and plan of care. Patient has been instructed to contact the clinic with any concerns before the next appointment. Dr. Duran has reviewed this note and agrees with this plan of care. This note was dictated using voice recognition software and make contain errors or omissions. [facility] Disclaimer: The information contained in this section may have been updated after the patient was seen, as this information can be updated by other users. Medical History History of cardiac pacemaker Hyperlipidemia Hypertension Hypoglycemia Sleep apnea Surgical History History of breast biopsy History of cholecystectomy History of gastric bypass History of hernia repair History of repair of hiatal hernia Family History (Reviewed 10/31/22 @ 11:03 by Vasquez Alonso
[2022-11-07 10:13] VITALS: BP 147/88; PULSE 84; RESP 18; O2SAT 98; BMI 41.5
== END ==
PROVIDERS: Visit Provider Nurse Practitioner Family
DX: M51.16 Intervertebral disc disorders with radiculopathy, lumbar region (principal); M48.062 Spinal stenosis, lumbar region with neurogenic claudication
CPT/HCPCS: 99212; G0463

== ENCOUNTER → 2022-11-13 15:30 | Outpatient (POV) | payer MEDICARE, SELFPAY ==
--- NOTE | 2022-11-13 16:07 | EXP.PAIN.SOA ---
[facility] Pain Management SOAP Note Subjective:: Patient is a pleasant 72-year-old female who presents today for follow-up. We are currently treating the patient for degenerative disc disease of lumbar spine with lumbar radiculopathy symptoms, lumbar spinal stenosis with neurogenic claudication symptoms. Today she rates her pain a 5 out of 10. Patient denies any new trauma or injury. Patient denies any change location or type of pain she experiences. Patient did have a spinal cord stimulator implanted on 10/31/2022. She states that she has had continued improvement with this device however it does need some additional altering. She states she has talked to [employer] personal service representative and they are meeting at 10 AM in the morning for an additional adjustment. Patient is currently prescribed [place] 7.5 mg 3 times a day and gabapentin 300 mg 4 times a day. Patient denies any side effects from this medication. She also takes a muscle relaxer 3 times a day that does provide additional relief. Patient is O2 dependent with a history of osteoporosis and pacemaker in place. Her Trino is [id number]. Its been reviewed and appropriate. Review of Systems: General: No recent weight changes, no fever, no sleep disturbances Respiratory: No cough, no shortness of air, no recurring pulmonary infections Cardiovascular/peripheral vascular: No chest pain, no palpitations, no edema, no shortness of breath Gastrointestinal: No new onset incontinence, normal bowel movements reported Genitourinary: No new onset incontinence Musculoskeletal: Low back pain, leg pain Psychiatric: [Normal mood/affect] Neurological: [Denies weakness in extremities], [denies balance issues] Objective:: Physical Exam: General: Alert and oriented x3, no acute distress, pleasant and cooperative Lungs: Respirations even and unlabored, symmetrical chest expansion Eyes: PERRL Musculoskeletal: Flexion and extension of lumbar [spine] somewhat guarded secondary to pain, [antalgic gait noted] Neurological: Speech clear, no gross sensory deficit Incision site clean, dry, well approximated with devonte intact Assessment:: Degenerative disc disease of lumbar spine with lumbar radiculopathy symptoms, lumbar spinal stenosis with neurogenic claudication symptoms Plan:: Patient has continued to have improvement following her spinal cord stimulator implant and is scheduled for an additional reprogramming in the morning with [employer]. Patient's incision site is clean, dry, well approximated and did have every other staple removed during today's visit. Patient will return to clinic in 1 week for the remainder of the devonte to be removed and Steri-Strips applied. I have counseled the patient to continue her postop restrictions to full 6 weeks. Patient has been instructed to contact the clinic with any concerns before the next appointment. Dr. Duran has reviewed this note and agrees with this plan of care. This note was dictated using voice recognition software and make contain errors or omissions. [facility] Disclaimer: The information contained in this section may have been updated after the patient was seen, as this information can be updated by other users. Medical History History of cardiac pacemaker Hyperlipidemia Hypertension Hypoglycemia Sleep apnea Surgical History History of breast biopsy History of cholecystectomy History of gastric bypass History of hernia repair History of repair of hiatal hernia Family History Other Family history of cancer Family history of hypertension History of [id number] deficiency Social History Smoking Status: Former smoker alcohol intake: never substance use type: denies use current occupational status: retired Travel
[2022-11-13 16:10] VITALS: BP 134/79; PULSE 97; RESP 18; O2SAT 96; BMI 40.9
== END ==
PROVIDERS: PCP Internal Medicine Adolescent Medicine; Visit Provider Nurse Practitioner Family
DX: M51.16 Intervertebral disc disorders with radiculopathy, lumbar region (principal); M48.062 Spinal stenosis, lumbar region with neurogenic claudication
CPT/HCPCS: 99212; 99213; G0463

== ENCOUNTER → 2022-11-21 11:44 | Outpatient (POV) | payer MEDICARE, SELFPAY ==
--- NOTE | 2022-11-21 13:21 | EXP.PAIN.SOA ---
[facility] Pain Management SOAP Note Subjective:: Patient is a pleasant 72-year-old female who presents today for follow-up. We are currently treating the patient for degenerative disc disease of lumbar spine with lumbar radiculopathy symptoms, lumbar spinal stenosis with neurogenic claudication. Today she rates her pain a 4 out of 10. Patient denies any new trauma or injury. Patient denies any change location or type of pain she experiences. Patient states she has continued to do well from her spinal cord stimulator implant on 10/31/2022. She is currently managed with [place] 7.5 mg 3 times a day and gabapentin 300 mg 4 times a day. Patient also takes a muscle relaxer 3 times a day for additional relief. Patient denies any side effects from these medications. She is O2 dependent with a history of osteoporosis and pacemaker in place. Her Trino is [id number]. Its been reviewed and appropriate. Review of Systems: General: No recent weight changes, no fever, no sleep disturbances Respiratory: No cough, no shortness of air, no recurring pulmonary infections Cardiovascular/peripheral vascular: No chest pain, no palpitations, no edema, no shortness of breath Gastrointestinal: No new onset incontinence, normal bowel movements reported Genitourinary: No new onset incontinence Musculoskeletal: Low back pain, feet pain Psychiatric: [Normal mood/affect] Neurological: [Denies weakness in extremities], [denies balance issues] Objective:: Physical Exam: General: Alert and oriented x3, no acute distress, pleasant and cooperative Lungs: Respirations even and unlabored, symmetrical chest expansion Eyes: PERRL Musculoskeletal: Flexion and extension of lumbar [spine] somewhat guarded secondary to pain, [antalgic gait noted] Neurological: Speech clear, no gross sensory deficit Skin: Incision sites clean, dry, well approximated with minimal erythema devonte intact Assessment:: Degenerative disc disease of lumbar spine with lumbar radiculopathy symptoms, lumbar spinal stenosis with neurogenic claudication Plan:: Patient has continued to have significant relief following her spinal cord stimulator implant. Her incision site was clean, dry, well approximated with minimal erythema. She did have the remainder of her devotne removed during today's visit and Steri-Strips applied. I have counseled the patient to continue her postop restrictions with minimal bending, lifting or twisting and no submerging in water until her incision is fully healed. Patient is continuing to use her abdominal binder and back brace. Patient was met with [employer] office machines sales representative during today's visit and reprogrammed additionally with some programs for her feet neuropathy. Patient will return to clinic in 1 month for reevaluation of symptoms and plan of care. Patient has been instructed to contact the clinic with any concerns before the next appointment. Dr. Duran has reviewed this note and agrees with this plan of care. This note was dictated using voice recognition software and make contain errors or omissions. [facility] Disclaimer: The information contained in this section may have been updated after the patient was seen, as this information can be updated by other users. Medical History History of cardiac pacemaker Hyperlipidemia Hypertension Hypoglycemia Sleep apnea Surgical History History of breast biopsy History of cholecystectomy History of gastric bypass History of hernia repair History of repair of hiatal hernia Family History Other Family history of cancer Family history of hypertension History of [id number] deficiency Social History Smoking Status: Former smoker alcohol intake: never substance use type: denies use current occupational
[2022-11-21 13:25] VITALS: BMI 34.4
== END ==
PROVIDERS: PCP Internal Medicine Adolescent Medicine; Visit Provider Nurse Practitioner Family
DX: M51.16 Intervertebral disc disorders with radiculopathy, lumbar region (principal); M48.062 Spinal stenosis, lumbar region with neurogenic claudication
CPT/HCPCS: 99213; G0463

== ENCOUNTER → 2022-12-22 11:35 | Outpatient (POV) | payer MEDICARE, SELFPAY ==
--- NOTE | 2022-12-22 11:49 | EXP.PAIN.SOA ---
[facility] Pain Management SOAP Note Subjective:: Patient is a pleasant 72-year-old female who presents today for medication refill and follow-up. We are currently treating the patient for degenerative disc disease of lumbar spine with lumbar radiculopathy symptoms, lumbar spinal stenosis with neurogenic claudication symptoms. Today she rates her pain at a 5 out of 10. Patient states that she did fall out of the bed yesterday and does have some soreness on her right elbow. Patient denies any specific fracture or significant injury related to this episode. She did have a spinal cord stimulator implanted on 10/31/2022. Patient denies any's side effects following this procedure. She states she is doing well with it. She states that she thinks she could use some adjustment on the programming however right now it is okay. She is currently managed with [place] 7.5 mg 3 times a day and gabapentin 300 mg 4 times a day from Dr. Vargas's office. Patient denies any side effects from this medication. She is also prescribed Skelaxin 800 mg 3 times daily. Patient is on continuous O2. She does have a history of osteoporosis and cardiac pacemaker. Her Trino is [id number]. Its been reviewed and appropriate. Review of Systems: General: No recent weight changes, no fever, no sleep disturbances Respiratory: No cough, no shortness of air, no recurring pulmonary infections Cardiovascular/peripheral vascular: No chest pain, no palpitations, no edema, no shortness of breath Gastrointestinal: No new onset incontinence, normal bowel movements reported Genitourinary: No new onset incontinence Musculoskeletal: Low back pain Psychiatric: [Normal mood/affect] Neurological: [Denies weakness in extremities], [denies balance issues] Objective:: Physical Exam: General: Alert and oriented x3, no acute distress, pleasant and cooperative Lungs: Respirations even and unlabored, symmetrical chest expansion Eyes: PERRL Musculoskeletal: Flexion and extension of lumbar [spine] somewhat guarded secondary to pain, [antalgic gait noted] Neurological: Speech clear, no gross sensory deficit Skin: Incision sites clean, dry, with no erythema Assessment:: Degenerative disc disease of lumbar spine with lumbar radiculopathy symptoms, lumbar spinal stenosis with neurogenic claudication symptoms Plan:: Patient continues to do well following her spinal cord stimulator implant. Her incision sites are completely healed with no erythema or drainage noted. I will send in a 5-day dose of prednisone 20 mg twice daily. Patient will come back in 1 month for reevaluation of symptoms and plan of care. I will contact [employer] sales promotion representative to verify that they will be available for this appointment for reprogramming. Patient has been instructed to contact the clinic with any concerns before the next appointment. Dr. Duran has reviewed this note and agrees with this plan of care. This note was dictated using voice recognition software and make contain errors or omissions. [facility] Disclaimer: The information contained in this section may have been updated after the patient was seen, as this information can be updated by other users. Medical History History of cardiac pacemaker Hyperlipidemia Hypertension Hypoglycemia Sleep apnea Surgical History History of breast biopsy History of cholecystectomy History of gastric bypass History of hernia repair History of repair of hiatal hernia Family History Other Family history of cancer Family history of hypertension History of hrpyy-[id number] deficiency Social History Smoking Status: Former smoker alcohol intake: never substance use type: denies use current occupational status: retired Travel in the last 8 weeks: None
[2022-12-22 12:00] VITALS: BP 137/71; PULSE 88; RESP 19; O2SAT 96; BMI 42.7
== END | disposition home or self-care (01) ==
PROVIDERS: PCP Internal Medicine Adolescent Medicine; Visit Provider Nurse Practitioner Family
DX: M51.16 Intervertebral disc disorders with radiculopathy, lumbar region (principal); M48.062 Spinal stenosis, lumbar region with neurogenic claudication
CPT/HCPCS: 99212; G0463

== ENCOUNTER → 2023-01-22 09:23 | Outpatient (POV) | payer MEDICARE, SELFPAY ==
[2023-01-22 09:56] VITALS: BP 118/69; PULSE 89; RESP 20; BMI 42.4
--- NOTE | 2023-01-22 10:19 | EXP.PAIN.SOA ---
[facility] Pain Management SOAP Note Subjective:: Patient is a pleasant 72-year-old female who presents today for follow-up and spinal cord stimulator reprogramming. We are currently treating the patient for degenerative disc disease of lumbar spine with lumbar radiculopathy symptoms, lumbar spinal stenosis with neurogenic claudication symptoms, status post minimally invasive lumbar decompression procedure. Today she rates her pain a 6 out of 10. Patient denies any new trauma or injury from her last visit. She denies any change location or type of pain that she experiences. Patient does have a [employer] spinal cord stimulator implant and and states it is doing well. She does have one area that she would like to be targeted during today's reprogramming and see if she can get better coverage at this location. Patient denies any issues following her implant. She is currently managed with [place] 7.5 mg 3 times a day and gabapentin 300 mg 4 times a day from Dr. Vargas's office. She does state that she has recently been to a new neurologist who did recommend getting a right foot brace. Patient states that she has officially gotten this however she has not used it yet. Patient does also state that in the past that she has also used a back brace however her current one does not work as well due to her body type. She has had in the past the mild procedure that did provide significant relief however she states she noticed that she constantly is leaning forward to have relief with her back pain. She states that she frequently cannot walk for very long distance without having to stop and take multiple breaks for relief. Patient does state that she went flower shopping the other day and had significant pain by the time it was over. Patient does know that she has poor posture. She is on continuous O2 and has a history of osteoporosis and pacemaker in place. Her Trino has been reviewed and is appropriate. Review of Systems: General: No recent weight changes, no fever, no sleep disturbances Respiratory: No cough, no shortness of air, no recurring pulmonary infections Cardiovascular/peripheral vascular: No chest pain, no palpitations, no edema, no shortness of breath Gastrointestinal: No new onset incontinence, normal bowel movements reported Genitourinary: No new onset incontinence Musculoskeletal: Low back pain Psychiatric: [Normal mood/affect] Neurological: [Denies weakness in extremities], [denies balance issues] Objective:: Physical Exam: General: Alert and oriented x3, no acute distress, pleasant and cooperative Lungs: Respirations even and unlabored, symmetrical chest expansion Eyes: PERRL Musculoskeletal: Flexion and extension of lumbar [spine] somewhat guarded secondary to pain, [antalgic gait noted] Neurological: Speech clear, no gross sensory deficit Assessment:: Degenerative disc disease of lumbar spine with lumbar radiculopathy symptoms, lumbar spinal stenosis with neurogenic claudication symptoms, status post minimally invasive lumbar decompression Plan:: Patient continues to experience significant back pain with increased activity. I have discussed with her that it may be beneficial in the future to do a lumbar epidural with epidurogram again and see whether or not if her ligamentum flavum has thickened and that she may need a repeat minimally invasive lumbar decompression procedure. We will follow-up with this at future visits. I will also order the patient a custom fitted back brace with [employer]. This is a medically necessary device to help offer support and stabilization for the patient's chronic back pain. [employer] customer operations representative was able to get her reprogrammed and the area of concern has improved. Patient will return to clinic in 2 months for reevaluation of symptoms and plan of care. Patient has been instructed to contact the clinic with any concerns before the next appointment. Dr. Duran has reviewed this note and agrees with this plan
== END ==
PROVIDERS: PCP Internal Medicine Adolescent Medicine; Visit Provider Nurse Practitioner Family
DX: M51.16 Intervertebral disc disorders with radiculopathy, lumbar region (principal); M48.062 Spinal stenosis, lumbar region with neurogenic claudication
CPT/HCPCS: 99212; G0463

== ENCOUNTER → 2023-03-23 13:17 | Outpatient (POV) | payer MEDICARE, SELFPAY ==
--- NOTE | 2023-03-23 13:40 | EXP.PAIN.SOA ---
[facility] Pain Management SOAP Note Subjective:: Patient is a pleasant 73-year-old female who presents today for follow-up. We are currently treating the patient for degenerative disc disease of lumbar spine with lumbar radiculopathy symptoms, lumbar spinal stenosis with neurogenic claudication symptoms, status post minimally invasive lumbar decompression procedure. Today she rates her pain a 7 out of 10. Patient denies any new trauma or injury. She does state that she still has issues with balance and that she knows she needs to get a cane. She does state that she is planning on getting one as soon as possible. She does also state that she continues to have some mid back pain however it is related to what she is doing on a day-to-day basis. She states that if she stops and sits down or lays down that the pain does improve. She does also state that her current [employer] spinal cord stimulator programming helps as well. Patient is currently managed with gabapentin 300 mg 4 times a day and [place] 7.5 mg 3 times a day from Dr. Vargas's office. She denies any side effects from this medication. She is on continuous oxygen and does have a pacemaker in place. Her Trino is [id number]. Its been reviewed and appropriate. Review of Systems: General: No recent weight changes, no fever, no sleep disturbances Respiratory: No cough, no shortness of air, no recurring pulmonary infections Cardiovascular/peripheral vascular: No chest pain, no palpitations, no edema, no shortness of breath Gastrointestinal: No new onset incontinence, normal bowel movements reported Genitourinary: No new onset incontinence Musculoskeletal: Mid back pain Psychiatric: [Normal mood/affect] Neurological: [Denies weakness in extremities], [denies balance issues] Objective:: Physical Exam: General: Alert and oriented x3, no acute distress, pleasant and cooperative Lungs: Respirations even and unlabored, symmetrical chest expansion Eyes: PERRL Musculoskeletal: Flexion and extension of thoracic [spine] somewhat guarded secondary to pain, [antalgic gait noted] Neurological: Speech clear, no gross sensory deficit Assessment:: Degenerative disc disease of lumbar spine with lumbar radiculopathy symptoms, lumbar spinal stenosis with neurogenic claudication symptoms, status post minimally invasive lumbar decompression procedure, mid back pain Plan:: Patient is still getting relief with her [employer] spinal cord stimulator. I have discussed with the patient that at her next visit we will plan on having a [employer] workforce services representative present for possible reprogramming. Patient will return to clinic in 3 months for reevaluation of symptoms and plan of care. Patient has been instructed to contact the clinic with any concerns before the next appointment. Dr. Duran has reviewed this note and agrees with this plan of care. This note was dictated using voice recognition software and make contain errors or omissions. [facility] Disclaimer: The information contained in this section may have been updated after the patient was seen, as this information can be updated by other users. Medical History History of cardiac pacemaker Hyperlipidemia Hypertension Hypoglycemia Sleep apnea Surgical History History of breast biopsy History of cholecystectomy History of gastric bypass History of hernia repair History of repair of hiatal hernia Family History Other Family history of cancer Family history of hypertension History of nvqrf-3-[id number] deficiency Social History Smoking Status: Former smoker alcohol intake: never substance use type: denies use current occupational status: other Travel in the last 8 weeks: None household members: spouse housing: h
[2023-03-23 14:43] VITALS: BP 124/65; PULSE 97; RESP 18; O2SAT 96; BMI 41.0
== END ==
PROVIDERS: PCP Internal Medicine Adolescent Medicine; Visit Provider Nurse Practitioner Family
DX: M51.16 Intervertebral disc disorders with radiculopathy, lumbar region (principal); M48.062 Spinal stenosis, lumbar region with neurogenic claudication; M96.1 Postlaminectomy syndrome, not elsewhere classified; M54.6 Pain in thoracic spine
CPT/HCPCS: 99212; G0463

== ENCOUNTER → 2023-06-25 11:28 | Outpatient (POV) | payer MEDICARE, SELFPAY ==
[2023-06-25 12:20] VITALS: BP 138/86; PULSE 88; RESP 18; O2SAT 93; BMI 41.1
--- NOTE | 2023-06-25 12:21 | EXP.PAIN.SOA ---
[facility] Pain Management SOAP Note Subjective:: Patient is a pleasant 73-year-old female who presents today for follow-up. We are currently treating the patient for degenerative disc disease of lumbar spine with lumbar radiculopathy symptoms, lumbar spinal stenosis with neurogenic claudication symptoms, status post minimally invasive lumbar decompression. Today she rates her pain a 5 out of 10. Patient denies any new trauma or injury. She does state that overall physically she is doing well and all her lab work has been within normal limits however on a day-to-day basis she finds it more more difficult to move throughout the day. Patient states that she feels very stiff overall and that she has to make herself get up and move around. She does also state that she has been experiencing charley horses in her upper thigh as well as her counts. Patient is currently managed with gabapentin 300 mg 4 times a day and [place] 7.5 mg 3 times a day from Dr. Vargas's office. She denies any side effects from this medication. She states she has been on this for years. She does state that frequently she will wait until it is absolutely unbearable to take a pain tablet and sometimes this will make her symptoms worse. Patient does have a [employer] spinal cord stimulator in place and states it is continuing to provide additional relief. She denies needing any adjustment on her programming. Patient is on continuous O2 and has a pacemaker in place. Her Trino is [id number]. Its been reviewed and appropriate. Review of Systems: General: No recent weight changes, no fever, no sleep disturbances Respiratory: No cough, no shortness of air, no recurring pulmonary infections Cardiovascular/peripheral vascular: No chest pain, no palpitations, no edema, no shortness of breath Gastrointestinal: No new onset incontinence, normal bowel movements reported Genitourinary: No new onset incontinence Musculoskeletal: Low back pain, joint pain Psychiatric: [Normal mood/affect] Neurological: [Denies weakness in extremities], [denies balance issues] Objective:: Physical Exam: General: Alert and oriented x3, no acute distress, pleasant and cooperative Lungs: Respirations even and unlabored, symmetrical chest expansion Eyes: PERRL Musculoskeletal: Flexion and extension of lumbar [spine] somewhat guarded secondary to pain, [antalgic gait noted] Neurological: Speech clear, no gross sensory deficit Assessment:: Degenerative disc disease of lumbar spine with lumbar radiculopathy symptoms, lumbar spinal stenosis with neurogenic claudication symptoms, status post minimally invasive lumbar decompression procedure Plan:: Patient is experiencing significant pain in her low back along with multiple joints. I have discussed with the patient that I highly recommend that she take her medication before her pain gets unbearable. I have discussed with the patient that I recommend her talking with Dr. Vargas about possibly increasing her medication with extra tablets monthly. I have discussed if her PCP would like us to take over that medication that we can in the future. Patient does state that she is scheduled for a follow-up with his office in July and I have counseled her that we will follow-up with her after that appointment to see if we are taking over her [place]. I am making the recommendation of instead of 90 tablets that we do 105 tablets/month, we will review this at future visits. I will send in a 14-day supply of ropinirole 0.25 mg at bedtime for her leg cramps. I have counseled the patient to contact our office if this does provide additional relief between now and her next visit and that if she would like additional refills. Patient will return to clinic in 1 month for reevaluation of symptoms and plan of care. Patient has been instructed to contact the clinic with any concerns before the next appointment. Dr. Duran has reviewed this note and agrees with this plan of care. This note was dictate
== END | disposition home or self-care (01) ==
PROVIDERS: PCP Internal Medicine Adolescent Medicine; Visit Provider Nurse Practitioner Family
DX: M51.16 Intervertebral disc disorders with radiculopathy, lumbar region (principal); M48.062 Spinal stenosis, lumbar region with neurogenic claudication; Z98.890 Other specified postprocedural states
CPT/HCPCS: 99212; G0463

== ENCOUNTER 2023-06-26 21:57 | Emergency (ER) | payer MEDICARE, SELFPAY ==
[2023-06-26 21:59] VITALS: BP 107/51; PULSE 87; RESP 18; TEMP 36.8; O2SAT 94; BMI 42.5
--- NOTE | 2023-06-26 22:12 | CT_ITS ---
PROCEDURE INFORMATION: Exam: CT Cervical Spine Without Contrast Exam date and time: 06/26/2023 10:28 PM Age: 73 years old Clinical indication: Neck pain; Additional info: Fall, hit head on xarelto TECHNIQUE: Imaging protocol: Computed tomography of the cervical spine without contrast. Radiation optimization: All CT scans at this facility use at least one of these dose optimization techniques: automated exposure control; mA and/or kV adjustment per patient size (includes targeted exams where dose is matched to clinical indication); or iterative reconstruction. REPORTING DATA: Count of CT and Cardiac NM exams in prior 12 months: This patient has received 0 known CTs and 0 known cardiac nuclear medicine studies in the 12 months prior to the current study. COMPARISON: CT HEAD/BRAIN WO CON 06/26/2023 10:25 PM FINDINGS: Bones/joints: No acute fracture. Normal alignment. Subcentimeter enostosis at C2 and C5. Cervical disc desiccation. No significant disc bulge or herniation. No severe spinal canal stenosis. No significant neural foraminal narrowing. Lungs: Lung apices are normal. Soft tissues: Unremarkable. IMPRESSION: No acute fractures or listhesis.
--- NOTE | 2023-06-26 22:12 | CT_ITS ---
PROCEDURE INFORMATION: Exam: CT Head Without Contrast Exam date and time: 06/26/2023 10:25 PM Age: 73 years old Clinical indication: Pain; Headache; Additional info: Fall, hit head on xarelto TECHNIQUE: Imaging protocol: Computed tomography of the head without contrast. Radiation optimization: All CT scans at this facility use at least one of these dose optimization techniques: automated exposure control; mA and/or kV adjustment per patient size (includes targeted exams where dose is matched to clinical indication); or iterative reconstruction. REPORTING DATA: Count of CT and Cardiac NM exams in prior 12 months: This patient has received 0 known CTs and 0 known cardiac nuclear medicine studies in the 12 months prior to the current study. COMPARISON: No relevant prior studies available. FINDINGS: Brain: No evidence of mass effect or midline shift. Patchy areas leukomalacia in the right posterior frontal cortex compatible with a chronic ischemic event. No focal areas of abnormal attenuation. The rutherford/white matter interfaces are preserved. The basal cisterns are patent. Cerebral ventricles: No ventriculomegaly. Paranasal sinuses: Visualized sinuses are unremarkable. No fluid levels. Mastoid air cells: Visualized mastoid air cells are well aerated. Bones/joints: Unremarkable. No acute fracture. Soft tissues: Unremarkable. IMPRESSION: 1. No CT evidence of intracranial hemorrhage, mass effect, midline shift or hydrocephalus. 2. Patchy areas leukomalacia in the right posterior frontal cortex compatible with a chronic ischemic event.
--- NOTE | 2023-06-26 22:19 | XR_ITS ---
PROCEDURE INFORMATION: Exam: XR Left Clavicle, Complete Exam date and time: 06/26/2023 10:46 PM Age: 73 years old Clinical indication: Pain; Shoulder; Left; Additional info: L clav pain after fall TECHNIQUE: Imaging protocol: Radiologic exam of the left clavicle. Complete exam. Views: Any number of views. COMPARISON: CT CERVICAL SPINE WO CON 06/26/2023 10:28 PM FINDINGS: Tubes, catheters and devices: There is a left chest implanted cardiac device. Bones/joints: Minimal degenerative disease of the acromioclavicular and glenohumeral joints are partially seen. The osseous structures are intact, with no signs of acute fracture, dislocation, or malalignment. Age-related degenerative changes are observed. There is no evidence of abnormal bone density or destructive lesions. Lungs: Limited visualization of the hemithorax demonstrates no acute pathology. Soft tissues: The soft tissues appear within normal limits. IMPRESSION: At the time of imaging, the study shows no acute osseous abnormalities but does reveal signs of age-related degenerative changes.
--- NOTE | 2023-06-26 22:25 | HMH.EDGENADL ---
Discharge Plan Disposition Patient Disposition: Home, Self-Care Chief Complaint: Fall Prescriptions Prescriptions: No Action thiamine HCl (vitamin B1) 250 mg tablet 1,000 mg PO DAILY simvastatin 40 mg tablet 40 mg PO HS levothyroxine [Synthroid] 50 mcg tablet 50 mcg PO DAILY nebivolol [Bystolic] 5 mg tablet 5 mg PO DAILY metaxalone [Skelaxin] 800 mg tablet 800 mg PO TID furosemide [Lasix] 40 mg tablet 40 mg PO DAILY citalopram 20 mg tablet 20 mg PO DAILY gabapentin 300 mg capsule 600 mg PO BID montelukast [Singulair] 10 mg tablet 10 mg PO PM hydrocodone-acetaminophen [[place]] 7.5-325 mg tablet 1 tab PO TIDP PRN (Reason: Moderate Pain) rivaroxaban [Xarelto] 20 mg tablet 20 mg PO QPMWITHMEAL Hold Instructions: Resume on 07/18/22. Do not take during the stimulator trial period sucralfate [Carafate] 1 gram tablet 1 g PO QID coenzyme Q10 100 mg capsule 300 mg PO DAILY lorazepam 1 mg tablet 1 mg PO DAILYP PRN (Reason: Anxiety) mometasone-formoterol [Dulera] 200-5 mcg/actuation HFA aerosol inhaler 2 puff IH BID dofetilide [Tikosyn] 500 mcg capsule 500 mcg PO BID melatonin 3 mg tablet 3 mg PO HSP PRN (Reason: Sleep) biotin 5,000 mcg tablet,disintegrating 10,000 mcg PO BID donepezil 10 MG tablet 20 mg PO DAILY thiamine HCl (vitamin B1) 100 MG tablet 100 mg PO DAILY famotidine 20 MG tablet 20 mg PO DAILY magnesium oxide 400 MG tablet 400 mg PO DAILY zinc 50 MG tablet 50 mg PO DAILY albuterol sulfate 8.5 GM HFA aerosol inhaler 2 puff IH Q4HP PRN (Reason: Shortness Of Breath) cholecalciferol (vitamin D3) 125 MCG capsule 125 mcg PO DAILY vitamin B complex 1 EACH capsule 1 each PO DAILY iron, carbonyl 45 MG tablet 45 mg PO DAILY bupropion HCl 150 MG tablet extended release 24 hr 150 mg PO DAILY calcium citrate-vitamin D3 1 EACH tablet 1 each PO DAILY jzpeghlu-pic-KV-lycopen-lutein 1 EACH tablet 1 each PO DAILY alpha lipoic acid 200 MG tablet 200 mg PO DAILY vitamin E succinate 400 UNIT tablet 400 units PO DAILY potassium chloride 10 MEQ tablet,ER particles/crystals 10 meq PO DAILY omeprazole 40 MG capsule,delayed release(DR/EC) 40 mg PO BID ipratropium-albuterol 3 ML solution for nebulization 3 ml IH Q4HP PRN (Reason: Shortness Of Breath) 30 Days Qty: 120 0RF budesonide-formoterol 10.2 GM HFA aerosol inhaler 2 puff IH BID ropinirole 0.25 mg tablet 0.25 mg PO HS Qty: 14 0RF Referrals Follow up/Referrals: David Vargas MD [Primary Care Provider] - See instructions Activity Restrictions/Add. Instructions Additional Instructions/Restrictions: Call your family doctor to establish care for this visit to the emergency department and schedule follow-up within 48 hours to ensure improvement. If you have any worsening of your condition or any other concerning signs or symptoms, return to the emergency department or your primary care doctor for further evaluation. Stitches will dissolve in 7 to 10 days. Clinical Impressions Clinical Impression: Fall Chin laceration Qualifiers: Encounter type: initial encounter Qualified Code(s): S01.81XA - Laceration without foreign body of other part of head, initial encounter Discharge ED Provider: Rico Saravia General Adult [facility] General Chief complaint: Fall Stated complaint: [id number]/[id number] facial bruising, shoulder pain Time Seen by Provider: 06/26/23 22:00 Mode of Arrival: Wheelchair Source of Information: Patient Limitations: No Limitations Description of Symptoms (Recalled from ER Triage Doc. by RN): pt reports sitting on the side of her bed and her slick sheets caused her to slide of hitting her chin on the bedside table, denies LOC, laceration to chin, bleeding controlled, pain to left clavicale and left eye History of Pres
[2023-06-26 23:01] VITALS: BP 149/69; PULSE 74; RESP 12; O2SAT 97
[2023-06-26 23:39] VITALS: BP 149/69; PULSE 73; RESP 20; TEMP 36.6; O2SAT 98
== END 2023-06-26 23:41 | disposition home or self-care (01) ==
PROVIDERS: Emergency Provider Emergency Medicine; PCP Internal Medicine Adolescent Medicine
DX: S01.81XA Laceration without foreign body of other part of head, initial encounter (principal); I11.0 Hypertensive heart disease with heart failure; I50.9 Heart failure, unspecified; J44.9 Chronic obstructive pulmonary disease, unspecified; E78.5 Hyperlipidemia, unspecified; G47.30 Sleep apnea, unspecified; Z79.01 Long term (current) use of anticoagulants; Z87.891 Personal history of nicotine dependence; Z95.0 Presence of cardiac pacemaker; W06.XXXA Fall from bed, initial encounter
CPT/HCPCS: 12011; 70450; 72125; 73000; 99284

== ENCOUNTER → 2023-07-08 10:58 | Outpatient (POV) | payer MEDICARE, SELFPAY ==
--- NOTE | 2023-07-08 11:39 | EXP.PAIN.SOA ---
[facility] Pain Management SOAP Note Subjective:: Patient is a pleasant 73-year-old female who presents today for follow-up. We are currently treating the patient for degenerative disc disease of lumbar spine with lumbar radiculopathy symptoms, lumbar spinal stenosis with neurogenic claudication symptoms, status post minimally invasive lumbar decompression. Today she rates her pain a 9 out of 10. Patient states that she had a fall approximately 1 week ago coming out of bed. Patient states that they have very silky sheets on the bed and occasionally she has slid out onto the floor. Patient states this did occur last week and her feet came out from under her. Patient states she did fall hitting her jaw and neck as well as her low back. Patient did go to the ER for evaluation and stated most of her pain at that time was into and around her face and chest. She states they did do imaging including CTs of her neck and head with no acute findings. She does state over the last week her pain has worsened in her low back area more prominent on the left side. Patient states they did not do any imaging at that location because that was not her main complaint when she went to ER. Patient does have a pacemaker in place that is currently not MRI compatible however she states she is scheduled for surgery next Thursday to have hers replaced with 1 that is. Patient is currently managed with gabapentin 300 mg 4 times a day and [place] 7.5 mg 3 times a day from Dr. Macias's office. Patient denies any side effects from this. She states that she has been having to use some of her additional medication to help due to the recent fall. Patient does have a [employer] spinal cord stimulator in place. She is on continuous O2. Her Trino has been reviewed and is appropriate. Review of Systems: General: No recent weight changes, no fever, no sleep disturbances Respiratory: No cough, no shortness of air, no recurring pulmonary infections Cardiovascular/peripheral vascular: No chest pain, no palpitations, no edema, no shortness of breath Gastrointestinal: No new onset incontinence, normal bowel movements reported Genitourinary: No new onset incontinence Musculoskeletal: Low back pain Psychiatric: [Normal mood/affect] Neurological: [Denies weakness in extremities], [denies balance issues] Objective:: Physical Exam: General: Alert and oriented x3, no acute distress, pleasant and cooperative Lungs: Respirations even and unlabored, symmetrical chest expansion Eyes: PERRL Musculoskeletal: Flexion and extension of lumbar [spine] somewhat guarded secondary to pain, [antalgic gait noted] Neurological: Speech clear, no gross sensory deficit Assessment:: Degenerative disc disease of lumbar spine with lumbar radiculopathy symptoms, lumbar spinal stenosis with neurogenic claudication symptoms, status post minimally invasive lumbar decompression, acute fall injury Plan:: Patient is experiencing worsening pain in her low back related to a recent fall. Patient had limited range of motion of her lumbar spine during today's visit. I have discussed with the patient that I will order MRI without contrast of her lumbar spine to confirm there are no acute fractures related to her recent fall. I have counseled her that this imaging is contingent on the replacement of her current pacemaker to a MRI compatible 1 and to contact our office if something changes and she does not get this device. I will send in a 5-day dose of prednisone 20 mg twice daily as well as a 14-day supply of [place] 5 mg twice daily. Patient will return to clinic in 2 weeks for reevaluation of symptoms and plan of care. Patient has been advised of risks of oversedation with the prescribed medication. Narcan has been offered to the patient in the event of oversedation. Patient has been advised that a family member should also be educated regarding administration of Narcan. Patient has been instructed to contact the clinic with any c
[2023-07-08 11:57] VITALS: BP 136/86; PULSE 81; RESP 19; O2SAT 94; BMI 40.6
== END | disposition home or self-care (01) ==
PROVIDERS: PCP Internal Medicine Adolescent Medicine; Visit Provider Nurse Practitioner Family
DX: M51.16 Intervertebral disc disorders with radiculopathy, lumbar region (principal); M48.062 Spinal stenosis, lumbar region with neurogenic claudication; Z98.890 Other specified postprocedural states; W06.XXXA Fall from bed, initial encounter
CPT/HCPCS: 99212; G0463

== ENCOUNTER → 2023-07-22 13:09 | Outpatient (POV) | payer MEDICARE, SELFPAY ==
[2023-07-22 14:33] VITALS: BP 101/78; PULSE 56; RESP 20; O2SAT 94; BMI 40.6
--- NOTE | 2023-07-22 14:33 | EXP.PAIN.SOA ---
[facility] Pain Management SOAP Note Subjective:: Patient is a pleasant 73-year-old female who presents today for follow-up. We are currently treating the patient for degenerative disc disease of lumbar spine with lumbar radiculopathy symptoms, lumbar spinal stenosis with neurogenic claudication symptoms, status post minimally invasive lumbar decompression. Today she rates her pain a 10 out of 10. Patient states she continues to have excruciating pain in her low back following a fall that she experienced earlier this month. Patient did have her new pacemaker placed that is MRI. Patient does state that she would like to proceed forward with the MRI imaging however there have been some issues regarding getting this scheduled and if radiology will allow this considering how new her pacemaker is. Patient does state that the pain is severe and that will cause sharp shooting pain that starts on her right side and moves to the left when she is up. Patient states that she does get some improvement while using a recliner along with a heating pad. Patient at our last visit was prescribed a 14-day supply of prednisone as well as [place] 5 mg twice a day. Patient states this did help improve her symptoms. She did just have a prescription of [place] 7.5 mg 3 times a day refilled by her PCP. Her Trino has been reviewed and is appropriate. Review of Systems: General: No recent weight changes, no fever, no sleep disturbances Respiratory: No cough, no shortness of air, no recurring pulmonary infections Cardiovascular/peripheral vascular: No chest pain, no palpitations, no edema, no shortness of breath Gastrointestinal: No new onset incontinence, normal bowel movements reported Genitourinary: No new onset incontinence Musculoskeletal: Low back pain, leg pain Psychiatric: [Normal mood/affect] Neurological: [Denies weakness in extremities], [denies balance issues] Objective:: Physical Exam: General: Alert and oriented x3, no acute distress, pleasant and cooperative Lungs: Respirations even and unlabored, symmetrical chest expansion Eyes: PERRL Musculoskeletal: Flexion and extension of lumbar [spine] somewhat guarded secondary to pain, [antalgic gait noted] Neurological: Speech clear, no gross sensory deficit Assessment:: Degenerative disc disease of lumbar spine with lumbar radiculopathy symptoms, lumbar spinal stenosis with neurogenic claudication symptoms, status post minimally invasive decompression Plan:: I have reviewed over with the patient the radiology guidelines that were given to our office from [facility]. Patient does have a telephone number for direct line and states that they have said she can proceed forward if she we contacted them and then they have to go through Dr. Cintron for additional approval. I have counseled the patient that we will proceed forward with trying this however if we are unable to do the MRI I will submit for a CT of her lumbar spine without contrast. I will send in additional refills of the ropinirole 0.25 mg at bedtime and provide a 1 month supply of this medication. Patient will return to clinic in 2 weeks for reevaluation of symptoms and plan of care. Patient has been advised of risks of oversedation with the prescribed medication. Narcan has been offered to the patient in the event of oversedation. Patient has been advised that a family member should also be educated regarding administration of Narcan. Patient has been instructed to contact the clinic with any concerns before the next appointment. Dr. Duran has reviewed this note and agrees with this plan of care. This note was dictated using voice recognition software and make contain errors or omissions. [facility] Disclaimer: The information contained in this section may have been updated after the patient was seen, as this information can be updated by other users. Medical History History of cardiac pacemaker Hype
== END | disposition home or self-care (01) ==
PROVIDERS: PCP Internal Medicine Adolescent Medicine; Visit Provider Nurse Practitioner Family
DX: M51.16 Intervertebral disc disorders with radiculopathy, lumbar region (principal); M48.062 Spinal stenosis, lumbar region with neurogenic claudication
CPT/HCPCS: 99212; G0463

== ENCOUNTER → 2023-07-29 07:05 | Outpatient (CLI) | payer MEDICARE, SELFPAY ==
--- NOTE | 2023-07-29 07:11 | CT_ITS ---
FINAL REPORT TECHNIQUE: Axial imaging of the lumbar spine was obtained without contrast. Sagittal and coronal reformatted images were also obtained and reviewed. This study was performed with techniques to keep radiation doses as low as reasonably achievable (ALARA). Individualized dose reduction techniques using automated exposure control or adjustment of mA and/or kV according to the patient's size were employed. CLINICAL HISTORY: BACK PAIN, fall several days ago COMPARISON: 08/17/2020 FINDINGS: There is a mild to moderate superior endplate fracture of the T12 vertebral body, new since the prior CT of 2019. There is vacuum phenomenon present at the T11-12 level. The disc spaces are otherwise preserved.There is no evidence of significant central canal stenosis. A spinal stimulator has been placed since the prior CT examination. The stimulator extends into the thoracic region. There is a low-density focus present in the left kidney which measures 11 mm in diameter, partially imaged on the prior CT of 2019. Postoperative changes are present in the stomach. There is a less than 3 mm nonobstructing renal stone in the right kidney. IMPRESSION: Mild to moderate superior endplate fracture of the T12 vertebral body, new since the prior CT of 2019, but of uncertain chronicity. There is vacuum phenomenon present at the T11-12 disc level. Correlation with MRI would be helpful to determine the chronicity of this fracture as clinically indicated. Low density present in the left kidney partially imaged on the prior CT of 2019, which may represent a renal cyst. Correlation with contrast-enhanced CT or ultrasound would be helpful if clinically indicated. Reviewed, Interpreted and Dictated by Simon Molina III, MD Transcribed by Maggie Noriega Authenticated and [facility]
== END ==
PROVIDERS: PCP Internal Medicine Adolescent Medicine; Visit Provider Nurse Practitioner Family
DX: M51.36 Other intervertebral disc degeneration, lumbar region (principal)
CPT/HCPCS: 72131

== ENCOUNTER → 2023-08-06 13:06 | Outpatient (POV) | payer MEDICARE, SELFPAY ==
--- NOTE | 2023-08-06 14:11 | EXP.PAIN.SOA ---
[facility] Pain Management SOAP Note Subjective:: Patient is a pleasant 73-year-old female who presents today for follow-up of her lumbar CT without contrast. We are currently treating the patient for degenerative disc disease of lumbar spine with lumbar radiculopathy symptoms, lumbar spinal stenosis with neurogenic claudication symptoms, status post minimally invasive lumbar decompression, mid/low back pain related to recent fall. Today she rates her pain a 10 out of 10. Patient states she continues to have pain at her mid to low back. Patient does describe this as a constant throbbing aching sensation with occasional sharp shooting pains. She states it does radiate over into her sides from the point of her bra strap and even going down to her low back. Patient did recently have a fall at the very last week of June where she fell out of her bed hitting the floor. Patient did just recently have a new pacemaker placed however we did have difficulty getting MRI imaging and had to end up going with the CPAP. Patient does state that the pain has improved some however it is still interfering significantly with activities of daily living or even simple ambulation. Patient does use a wheelchair for help with movement. Patient does have significant osteoporosis history and does get injections every 6 months for this. Patient is currently managed with [place] 7.5 mg 3 times a day from her primary care provider she denies any side effects from this medication. She does state that this helps some. Patient was also given prednisone initially and she states that did improve some of her symptoms as well. Patient continues to use a recliner and heating pad when she is at home for help with her pain. Patient does have a cardiac history and has a pacemaker in place and is on blood thinners written by Dr. Cintron at [facility]. Patient is on continuous O2. Patient does also have a [employer] spinal cord stimulator in place. Her Trino has been reviewed and is appropriate. Review of Systems: General: No recent weight changes, no fever, no sleep disturbances Respiratory: No cough, no shortness of air, no recurring pulmonary infections Cardiovascular/peripheral vascular: No chest pain, no palpitations, no edema, no shortness of breath Gastrointestinal: No new onset incontinence, normal bowel movements reported Genitourinary: No new onset incontinence Musculoskeletal: Mid to low back pain with radiating pain into abdomen and low back/legs Psychiatric: [Normal mood/affect] Neurological: [Denies weakness in extremities], [denies balance issues] Objective:: Physical Exam: General: Alert and oriented x3, no acute distress, pleasant and cooperative Lungs: Respirations even and unlabored, symmetrical chest expansion Eyes: PERRL Musculoskeletal: Flexion and extension of lumbar [spine] somewhat guarded secondary to pain, [antalgic gait noted] Neurological: Speech clear, no gross sensory deficit TECHNIQUE: Axial imaging of the lumbar spine was obtained without contrast. Sagittal and coronal reformatted images were also obtained and reviewed. This study was performed with techniques to keep radiation doses as low as reasonably achievable (ALARA). Individualized dose reduction techniques using automated exposure control or adjustment of mA and/or kV according to the patient's size were employed. CLINICAL HISTORY: BACK PAIN, fall several days ago COMPARISON: 08/17/2020 FINDINGS: There is a mild to moderate superior endplate fracture of the T12 vertebral body, new since the prior CT of 2019. There is vacuum phenomenon present at the T11-12 level. The disc spaces are otherwise preserved.There is no evidence of significant central canal stenosis. A spinal stimulator has been placed since the prior CT examination. The stimulator extends into the thoracic region. There is a low-density focus present in the left kidney which measures 11 mm in diameter, partially im
[2023-08-06 15:15] VITALS: BP 100/67; PULSE 75; RESP 20; O2SAT 95; BMI 18.4
== END ==
PROVIDERS: PCP Internal Medicine Adolescent Medicine; Visit Provider Nurse Practitioner Family
DX: M51.16 Intervertebral disc disorders with radiculopathy, lumbar region (principal); M48.062 Spinal stenosis, lumbar region with neurogenic claudication; M80.08XD Age-related osteoporosis with current pathological fracture, vertebra(e), subsequent encounter for fracture with routine healing
CPT/HCPCS: 99212; G0463

== ENCOUNTER → 2023-08-14 12:09 | Outpatient (CLI) | payer MEDICARE, SELFPAY ==
[2023-08-14 12:35] LABS: Blood Urea Nitrogen 13 mg/dl (7-17); Estimated Glomerular Filt Rate 62 ml/min (>60); GFR (African American) 74 ML/MIN (>60)
--- NOTE | 2023-08-14 12:51 | CT_ITS ---
FINAL REPORT TECHNIQUE: Axial images through the thoracic spine were performed after the administration of intravenous contrast. Sagittal and coronal reconstruction images were performed. This study was performed with techniques to keep radiation doses as low as reasonably achievable, (ALARA). Individualized dose reduction techniques using automated exposure control or adjustment of mA and/or kV according to the patient's size were employed. CLINICAL HISTORY: T12 compression fx COMPARISON: None FINDINGS: CT THORACIC SPINE WITH CONTRAST: CT examination of the thoracic spine was performed after the administration of intravenous contrast. There is a mild T12 superior endplate compression fracture, with approximately 30% loss of vertebral body height. No retropulsion of fracture fragments is present. This is stable since a prior CT of the lumbar spine dated July 29 was performed. Multilevel osteophytes are present. No evidence of canal stenosis is present. No other evidence of fracture is identified in the thoracic spine. A spinal stimulator is identified. Views of the chest reveal mild changes of emphysema and postoperative changes at the gastroesophageal junction. A 25 mm left renal cyst is noted as well. IMPRESSION: Mild T12 superior endplate compression fracture with 30% loss of vertebral body height, stable since the prior lumbar spine CT. Reviewed, Interpreted and Dictated by Simon Molina III, MD Transcribed by Maggie Noriega Authenticated and [facility]
== END ==
PROVIDERS: Nurse Practitioner Family; PCP Internal Medicine Adolescent Medicine; Visit Provider Anesthesiology
DX: M54.6 Pain in thoracic spine (principal)
CPT/HCPCS: 36415; 72129; 82565; 84520; Q9967

== ENCOUNTER → 2023-08-19 13:03 | Outpatient (CLI) | payer MEDICARE, SELFPAY ==
--- NOTE | 2023-08-19 13:07 | MM_ITS ---
PROCEDURE INFORMATION: Exam: MG Bilateral Screening 3D Mammography Exam date and time: 08/19/2023 1:05 PM Age: 73 years old Clinical indication: Screening examination TECHNIQUE: Imaging protocol: Bilateral Screening tomosynthesis and 2D mammography including computer-aided detection (CAD) when performed. COMPARISON: 1. MG MM DIG SCREENING MAMM BI W/CAD 07/04/2022 3:24 PM 2. MG MM DIG SCREENING MAMM BI W/CAD 06/05/2021 8:53 AM FINDINGS: MAMMOGRAPHY: Breast composition: The breasts are almost entirely fatty. Mass: None. Architectural distortion: None. Calcifications: No suspicious calcifications. Asymmetric density: None. Skin thickening: None. Axillary adenopathy: None. IMPRESSION: No mammographic evidence of malignancy. Annual screening is recommended unless otherwise clinically indicated. ASSESSMENT: BI-RADS Category 1: Negative
== END ==
PROVIDERS: PCP Internal Medicine Adolescent Medicine; Visit Provider Internal Medicine Adolescent Medicine
DX: Z12.31 Encounter for screening mammogram for malignant neoplasm of breast (principal)
CPT/HCPCS: 77063; 77067

== ENCOUNTER 2023-12-31 09:02 | Outpatient (CLI) | payer MEDICARE, SELFPAY ==
--- NOTE | 2023-12-31 09:07 | XR_ITS ---
FINAL REPORT CLINICAL HISTORY: OSTEOPOROSIS COMPARISON: 06/05/2021 FINDINGS: Using L1-4, the bone mineral density of the spine is 0.909 g/cm2, corresponding to T-score of -1.3 which is consistent with osteopenia. Previously was 0.825 with T-score of -2.0. Using the left hip, the bone mineral density of the femoral neck is 0.606 g/cm2, corresponding to a T-score of -2.2 which is consistent with osteopenia. Previously was 0.653 with T-score of -1.8. Using the right hip, the bone mineral density of the femoral neck is 0.644 g/cm2, corresponding to a T-score of -1.8 which is consistent with osteopenia. Previously was 0.653 with T-score of -1.8. FRAX 10 year fracture risk is 9.1% for a hip fracture and 33% for a major osteoporotic fracture. NOTE: T-score: Standard deviation compared with peak bone mass of young adult mean. *Following the recommendations of the International Society of Bone densitometry, classification of hip BMD is based on the lower of two T-scores; total hip or femoral neck. IMPRESSION: Diminished bone mineral density consistent with osteopenia. Reviewed, Interpreted and Dictated by Jose Parkinson MD Transcribed by Dulce Maria Sandhu Authenticated and [facility]
== END 2023-12-31 23:59 | disposition home or self-care (01) ==
LOC: RAD 09:03
PROVIDERS: PCP Internal Medicine Adolescent Medicine; Visit Provider Internal Medicine Adolescent Medicine
DX: M81.0 Age-related osteoporosis without current pathological fracture (principal)
CPT/HCPCS: 77080

== ENCOUNTER 2024-02-25 06:28 | Outpatient (CLI) | payer MEDICARE, SELFPAY ==
--- NOTE | 2024-02-25 06:32 | CT_ITS ---
FINAL REPORT TECHNIQUE: Axial images through the abdomen and pelvis were performed without contrast.This study was performed with techniques to keep radiation doses as low as reasonably achievable, (ALARA). Individualized dose reduction techniques using automated exposure control or adjustment of mA and/or kV according to the patient's size were employed. CLINICAL HISTORY: NEPHROLITHIASIS COMPARISON: 01/18/2019 FINDINGS: ABDOMEN: The lung bases are clear. The heart size is normal. Limited images of the liver are unremarkable. Patient is status postcholecystectomy. The spleen is normal. No adrenal mass is identified. The aorta is normal in caliber. There is no significant free fluid or adenopathy. There is a tiny, 2 mm lower pole right renal stone without obstruction. No ureteral stone is identified. There is a hypodense mass of the left kidney measuring 23 mm, previously measured 13 mm. This is incompletely characterized without contrast. There is no hydronephrosis. There are postoperative changes of gastric bypass. PELVIS: The appendix is normal. Uterus and ovaries are unremarkable. There is a small left inguinal hernia containing fat. The urinary bladder is unremarkable. There is no significant free fluid or adenopathy. IMPRESSION: Minimal right nephrolithiasis without hydronephrosis. Enlarging left renal mass, incompletely characterized without contrast. Consider ultrasound or CT renal mass protocol for further evaluation. Reviewed, Interpreted and Dictated by Al Negrete MD Transcribed by Tammi Smith Authenticated and [facility]
== END 2024-02-25 23:59 | disposition home or self-care (01) ==
LOC: RAD 06:28
PROVIDERS: PCP Internal Medicine Adolescent Medicine; Visit Provider Nurse Practitioner Family
DX: N20.0 Calculus of kidney (principal)
CPT/HCPCS: 74176

== ENCOUNTER 2024-03-07 13:55 | Outpatient (CLI) | payer MEDICARE, SELFPAY ==
--- NOTE | 2024-03-07 14:01 | US_ITS ---
FINAL REPORT CLINICAL HISTORY: KIDNEY MASS LT COMPARISON: CT 02/25/2024 FINDINGS: RENAL ULTRASOUND Ultrasound images of the kidneys were obtained. The right kidney measures 10.6 cm in length. Possible small stone is noted in the lower pole. The left kidney measures 10.4 cm in length. There is a 2.8 cm anechoic mass consistent with cyst. IMPRESSION: 2.8 cm left renal cyst. Reviewed, Interpreted and Dictated by Simon Molina III, MD Transcribed by Dulce Maria Sandhu Authenticated and [facility]
== END 2024-03-07 23:59 | disposition home or self-care (01) ==
LOC: RAD 13:56
PROVIDERS: PCP Internal Medicine Adolescent Medicine; Visit Provider Nurse Practitioner Family
DX: N28.89 Other specified disorders of kidney and ureter (principal)
CPT/HCPCS: 76770

== ENCOUNTER 2024-09-09 15:58 | Outpatient (CLI) | payer MEDICARE, SELFPAY ==
--- NOTE | 2024-09-09 16:05 | MM_ITS ---
PROCEDURE INFORMATION: Exam: MG Bilateral Screening 3D Mammography Exam date and time: 09/09/2024 3:47 PM Age: 74 years old Clinical indication: Screening examination. A paternal aunt had breast cancer. TECHNIQUE: Imaging protocol: Bilateral Screening tomosynthesis and 2D mammography including computer-aided detection (CAD) when performed. COMPARISON: 1. MG MM DIG SCREENING MAMM BI W/CAD 08/19/2023 1:05 PM 2. MG MM DIG SCREENING MAMM BI W/CAD 07/04/2022 3:24 PM 3. MG MM DIG SCREENING MAMM BI W/CAD 06/05/2021 8:53 AM 4. MG MM DIG SCREENING MAMM BI W/CAD 06/04/2020 2:46 PM FINDINGS: MAMMOGRAPHY: Breast composition: There are scattered areas of fibroglandular density. Mass: None. Architectural distortion: None. Calcifications: No suspicious calcifications. Asymmetric density: None. Skin thickening: None. Axillary adenopathy: None. Other findings: Pacemaker in the left axilla, limits evaluation and accentuates the importance of clinical breast exam. IMPRESSION: No mammographic evidence of malignancy. Annual screening is recommended unless otherwise clinically indicated. ASSESSMENT: BI-RADS Category 1: Negative.
== END 2024-09-09 23:59 | disposition home or self-care (01) ==
LOC: RAD 16:00
PROVIDERS: PCP Internal Medicine Adolescent Medicine; Referring Provider Internal Medicine Adolescent Medicine; Visit Provider Internal Medicine Adolescent Medicine
DX: Z12.31 Encounter for screening mammogram for malignant neoplasm of breast (principal)
CPT/HCPCS: 77063; 77067

== ENCOUNTER 2025-04-03 11:00 | Outpatient (RCR) | payer MEDICARE, SELFPAY | END 2025-04-03 23:59 | disposition home or self-care (01) | LOC: OT 11:00 | PROVIDERS: PCP Internal Medicine Adolescent Medicine; Visit Provider Student in an Organized Health Care Education/Training Program | DX: Z98.890 Other specified postprocedural states (principal) | CPT/HCPCS: 97166 ==

== ENCOUNTER 2025-04-20 10:00 | Outpatient (RCR) | payer MEDICARE, SELFPAY | END 2025-04-20 23:59 | disposition home or self-care (01) | LOC: OT 10:00 | PROVIDERS: PCP Internal Medicine Adolescent Medicine; Visit Provider Student in an Organized Health Care Education/Training Program | DX: Z47.89 Encounter for other orthopedic aftercare (principal); Z96.611 Presence of right artificial shoulder joint | CPT/HCPCS: 97110; 97140 ==